=== PATIENT | male | born 1980 | race Caucasian/White ===

== ENCOUNTER → 2016-05-18 | Outpatient (CLI) | payer MEDICAID | LOC: M OUTALCOH 14:10 | PROVIDERS: ATTEND Psychiatry & Neurology Psychiatry | DX: F10.20 Alcohol dependence, uncomplicated (principal); F12.20 Cannabis dependence, uncomplicated ==

== ENCOUNTER → 2016-12-24 | Outpatient (CLI) | payer MEDICAID, OTHER ==
[2016-12-24 10:06] LABS: BASO % 0.4 % (0.0-1.0); EOS # 0.3 K/mm3 (0.0-0.50); EOS % 3.6 % (0.0-3.0); LARGE UNSTAINED CELL # 0.1 K/mm3 (0.0-0.4); LARGE UNSTAINED CELL % 1.9 % (0.0-4.0); LYMPH % 27.7 % (24.0-44.0); MEAN CORPUSCULAR HEMOGLOBIN 32.7 pg (27.0-33.0); MEAN CORPUSCULAR HGB CONC 34.4 g/dl (32.0-36.5); MEAN CORPUSCULAR VOLUME 94.9 fl (80.0-96.0); MONO # 0.4 K/mm3 (0.0-0.8); MONO % 5.5 % (0.0-5.0); NEUTROPHILS # 4.5 K/mm3 (1.8-7.7); NEUTROPHILS % 60.8 % (36.0-66.0); PLATELET COUNT, AUTOMATED 375 k/mm3 (150-450); RED CELL DISTRIBUTION WIDTH 12.5 % (11.5-14.5); WHITE BLOOD COUNT 7.3 K/mm3 (4.0-10.0)
[2016-12-24 10:37] LABS: ALBUMIN 4.1 GM/DL (3.2-5.2); ALBUMIN/GLOBULIN RATIO 1.32 (1.00-1.93); ALKALINE PHOSPHATASE 81 U/L (45-117); ALT/SGPT 36 U/L (12-78); ANION GAP 7 MEQ/L (8-16); AST/SGOT 16 U/L (15-37); BILIRUBIN,TOTAL 0.3 MG/DL (0.2-1.0); BLOOD UREA NITROGEN 14 MG/DL (7-18); CALCIUM LEVEL 9.5 MG/DL (8.5-10.1); CARBON DIOXIDE LEVEL 30 MEQ/L (21-32); CHLORIDE LEVEL 107 MEQ/L (98-107); CREATININE FOR GFR 0.85 MG/DL (0.70-1.30); GLOMERULAR FILTRATION RATE > 60.0 (>60); GLUCOSE, FASTING 86 MG/DL (70-105); POTASSIUM SERUM 4.5 MEQ/L (3.5-5.1); SODIUM LEVEL 144 MEQ/L (136-145); TOTAL PROTEIN 7.2 GM/DL (6.4-8.2)
== END ==
LOC: M LAB 09:25
PROVIDERS: ATTEND Nurse Practitioner Adult Health
DX: Z79.899 Other long term (current) drug therapy (principal); F33.41 Major depressive disorder, recurrent, in partial remission; F11.21 Opioid dependence, in remission

== ENCOUNTER → 2017-03-23 | Outpatient (CLI) | payer OTHER ==
[2017-03-23 13:31] LABS: ALBUMIN 4.2 GM/DL (3.2-5.2); ALBUMIN/GLOBULIN RATIO 1.31 (1.00-1.93); ALKALINE PHOSPHATASE 87 U/L (45-117); ALT/SGPT 23 U/L (12-78); AST/SGOT 17 U/L (7-37); BILIRUBIN,DIRECT < 0.1 MG/DL (0.0-0.2); BILIRUBIN,TOTAL 0.3 MG/DL (0.2-1.0); TOTAL PROTEIN 7.4 GM/DL (6.4-8.2)
== END ==
LOC: M LAB 12:44
PROVIDERS: ATTEND Nurse Practitioner Family
DX: F10.20 Alcohol dependence, uncomplicated (principal)

== ENCOUNTER → 2018-02-18 | Outpatient (REF) | payer OTHER ==
[2018-02-18 13:09] LABS: ALBUMIN 4.3 GM/DL (3.2-5.2); ALBUMIN/GLOBULIN RATIO 1.54 (1.00-1.93); ALKALINE PHOSPHATASE 69 U/L (45-117); ALT/SGPT 64 U/L (12-78); AST/SGOT 22 U/L (7-37); BILIRUBIN,DIRECT 0.1 MG/DL (0.0-0.2); BILIRUBIN,TOTAL 0.7 MG/DL (0.2-1.0); TOTAL PROTEIN 7.1 GM/DL (6.4-8.2)
== END ==
LOC: M LAB REF 11:46
DX: Z51.81 Encounter for therapeutic drug level monitoring (principal)

== ENCOUNTER 2018-08-07 10:36 | Emergency (ER) | payer MEDICAID, OTHER, SELFPAY ==
[~2018-08-07] VITALS: Ht 167.6 cm; Wt 63.6 kg
[2018-08-07] MEDS ORDERED: KETOROLAC 30 MG/ML VIAL (J1885) IV ONE (12:00)
[2018-08-07] MEDS ORDERED: NS 1,000 ML IV ONE (12:00)
[2018-08-07 12:24] LABS: BASO # 0.1 10^3/uL (0.0-0.2); BASO % 0.4 % (0.0-1.0); EOS # 0.4 10^3/uL (0.0-0.50); EOS % 2.8 % (0.0-3.0); HEMATOCRIT 47.4 % (42.0-52.0); HEMOGLOBIN 16.5 g/dl (13.5-17.5); LYMPH # 3.3 10^3/uL (1.5-4.5); LYMPH % 21.4 % (24.0-44.0); MEAN CORPUSCULAR HEMOGLOBIN 32.6 pg (27.0-33.0); MEAN CORPUSCULAR HGB CONC 34.8 g/dl (32.0-36.5); MEAN CORPUSCULAR VOLUME 93.7 fl (80.0-96.0); MONO # 1.4 10^3/uL (0.0-0.8); MONO % 9.1 % (0.0-5.0); NEUTROPHILS % 65.7 % (36.0-66.0); PLATELET COUNT, AUTOMATED 326 10^3/uL (150-450); RED BLOOD COUNT 5.06 10^6/uL (4.30-6.10); WHITE BLOOD COUNT 15.2 10^3/uL (4.0-10.0)
[2018-08-07 12:41] LABS: BLOOD UREA NITROGEN 14 MG/DL (7-18); CALCIUM LEVEL 8.8 MG/DL (8.5-10.1); CARBON DIOXIDE LEVEL 26 MEQ/L (21-32); CHLORIDE LEVEL 108 MEQ/L (98-107); CREATININE FOR GFR 1.06 MG/DL (0.70-1.30); GLOMERULAR FILTRATION RATE > 60.0 (>60); GLUCOSE, FASTING 94 MG/DL (70-100); POTASSIUM SERUM 4.1 MEQ/L (3.5-5.1); SODIUM LEVEL 138 MEQ/L (136-145)
[2018-08-07] MEDS ORDERED: FLOM0.4C39 PO (13:58)
[2018-08-07] MEDS ORDERED: KETO10TAB PO (13:59)
--- NOTE | 2018-08-07 14:13 | REP ---
CT ABDOMEN AND PELVIS WITHOUT CONTRAST: HISTORY: Left flank pain. A calcification is present in the left kidney consistent with nephrolithiasis. There is no hydroureter. The liver, gallbladder, pancreas, spleen, adrenal glands and right kidney are normal in appearance. There is no mass, adenopathy or free fluid. The visualized lungs are clear. The prostate gland and urinary bladder are normal in appearance. Middle and degenerative change is present in the spine. IMPRESSION: Left nephrolithiasis. Electronically Signed by Jose Armando Silva MD 08/07/2018 02:20 P
[2018-08-07 14:45] VITALS: BP 113/60
[2018-08-07 16:35] LABS: CHLAMYDIA DNA AMPLIFICATION NEGATIVE (NEGATIVE); GC DNA AMPLIFICATION POSITIVE (NEGATIVE)
== END 2018-08-07 15:22 | disposition home or self-care (01) ==
LOC: M ED 10:36
DX: N30.91 Cystitis, unspecified with hematuria (principal); N20.0 Calculus of kidney; Z88.0 Allergy status to penicillin; F17.210 Nicotine dependence, cigarettes, uncomplicated
CPT/HCPCS: 74176; 80048; 81001; 85025; 87086; 87661; 96374; 99284; J1885

== ENCOUNTER 2018-08-08 17:58 | Emergency (ER) | payer MEDICAID ==
[~2018-08-08] VITALS: Ht 167.6 cm; Wt 65.9 kg
[~2018-08-08 17:58] MED LIST: FLOM0.4C39 PO; KETO10TAB PO
[2018-08-08] MEDS ORDERED: cefTRIAXone SOD 250 MG VIAL (J0696) IM ONE (18:45)
[2018-08-08] MEDS ORDERED: LIDOCAINE 1% SDV 5 ML VIAL DILUENT ONE (18:45)
[2018-08-08] MEDS ORDERED: AZITHROMYCIN 250 MG TAB PO ONE (18:45)
[2018-08-08 19:45] VITALS: BP 111/77
== END 2018-08-08 19:53 | disposition home or self-care (01) ==
LOC: M ED 17:58
DX: A54.9 Gonococcal infection, unspecified (principal); N20.0 Calculus of kidney; F17.210 Nicotine dependence, cigarettes, uncomplicated; F12.90 Cannabis use, unspecified, uncomplicated; Z88.0 Allergy status to penicillin
CPT/HCPCS: 96372; 99283; J0696

== ENCOUNTER 2018-09-05 18:12 | Emergency (ER) | payer MEDICAID ==
[~2018-09-05] VITALS: Ht 167.6 cm; Wt 64.6 kg
[2018-09-05] MEDS ORDERED: MORPHINE 4 MG/ML 1ML VIAL/SYRINGE (J2270) IV PRN (19:00)
[2018-09-05] MEDS ORDERED: ONDANSETRON 4MG/2ML VIAL (J2405) IV ONE (19:00)
[2018-09-05] MEDS ORDERED: NS 500 ML IV ONE (19:00)
--- NOTE | 2018-09-05 19:23 | REP ---
Clinical: Trauma . Comparison: 03/25/2006 Findings: The mediastinum and cardiac silhouette are stable and within normal limits for portable technique. The lung pascual are clear without acute consolidation, effusion, or pneumothorax. Skeletal structures are intact. Impression: No acute cardiopulmonary process appreciated. Electronically Signed by Pato Frost MD 09/05/2018 07:15 P
[2018-09-05 19:41] LABS: BASO # 0.1 10^3/uL (0.0-0.2); BASO % 0.6 % (0.0-1.0); EOS # 0.2 10^3/uL (0.0-0.50); EOS % 2.3 % (0.0-3.0); HEMATOCRIT 41.6 % (42.0-52.0); HEMOGLOBIN 14.2 g/dl (13.5-17.5); LYMPH # 2.7 10^3/uL (1.5-4.5); LYMPH % 30.1 % (24.0-44.0); MEAN CORPUSCULAR HEMOGLOBIN 31.9 pg (27.0-33.0); MEAN CORPUSCULAR HGB CONC 34.1 g/dl (32.0-36.5); MEAN CORPUSCULAR VOLUME 93.5 fl (80.0-96.0); MONO # 0.8 10^3/uL (0.0-0.8); MONO % 8.6 % (0.0-5.0); NEUTROPHILS # 5.2 10^3/uL (1.8-7.7); NEUTROPHILS % 58.1 % (36.0-66.0); PLATELET COUNT, AUTOMATED 324 10^3/uL (150-450); RED BLOOD COUNT 4.45 10^6/uL (4.30-6.10); WHITE BLOOD COUNT 8.9 10^3/uL (4.0-10.0)
[2018-09-05 19:51] LABS: INR 0.97
[2018-09-05 19:52] LABS: PARTIAL THROMBOPLASTIN TIME 29.8 SECONDS (25.4-37.6)
[2018-09-05 20:04] LABS: ALBUMIN 3.8 GM/DL (3.2-5.2); ALT/SGPT 19 U/L (12-78); BILIRUBIN,DIRECT < 0.1 MG/DL (0.0-0.2); BILIRUBIN,TOTAL 0.6 MG/DL (0.2-1.0); BLOOD UREA NITROGEN 12 MG/DL (7-18); CALCIUM LEVEL 8.8 MG/DL (8.5-10.1); CARBON DIOXIDE LEVEL 31 MEQ/L (21-32); CHLORIDE LEVEL 105 MEQ/L (98-107); CREATININE FOR GFR 0.99 MG/DL (0.70-1.30); GLOMERULAR FILTRATION RATE > 60.0 (>60); GLUCOSE, FASTING 93 MG/DL (70-100); LIPASE 137 U/L (73-393); SODIUM LEVEL 142 MEQ/L (136-145); TOTAL PROTEIN 7.2 GM/DL (6.4-8.2)
[2018-09-05] MEDS ORDERED: ISOVUE-370 76% 100ML VIAL (Q9967) As Ordered ONE (20:06)
[2018-09-05] MEDS ORDERED: LIDOCAINE 2% 5ML JELLY UROJET TOP ONE (20:30)
--- NOTE | 2018-09-05 20:34 | REP ---
Clinical: Trauma with acute pain. Technique: Axial contrast enhanced images from the thoracic inlet to the upper abdomen with coronal and sagittal re-formations using 100 ml Isovue 370 intravenous contrast material. Findings: The bilateral lung pascual are well-aerated. Very minimal small patchy left lower lobe opacities may represent trace atelectasis or small contusions. No further significant consolidation. No effusion. No pneumothorax. Tracheobronchial tree is patent. The mediastinum demonstrates normal thoracic aorta, pulmonary vasculature and heart/pericardium. No evidence for mediastinal trauma/injury. No adenopathy. Osseous structures are intact without evidence for acute injury. Impression: 1. Very minimal spotty/patchy opacities in the left lower lobe may reflect trace atelectasis or very small contusions and should be correlated clinically. Short-term, 3-month follow-up may also be considered to exclude more significant pathology. 2. Remainder of the examination appears normal and without further acute pathology or trauma/injury. Electronically Signed by Pato Frost MD 09/05/2018 08:26 P
--- NOTE | 2018-09-05 20:39 | REP ---
Clinical: Trauma with acute pain. Technique: Axial contrast enhanced images from the lung bases to the pubic symphysis with coronal and sagittal re-formations using 100 ml Isovue 370 intravenous contrast material. Comparison: 08/07/2018 Findings: There is no evidence for solid organ injury. Liver, spleen, pancreas, gallbladder, bilateral adrenal glands and kidneys are normal. The enteric system is without obstruction or acute inflammatory process. Normal terminal ileum and appendix are identified in the right lower quadrant. Scattered colonic and sigmoid diverticula noted without acute diverticulitis. Pelvis demonstrates normal bladder and age appropriate prostate/seminal vesicles. No ascites. No free air. No adenopathy. Abdominal aorta and vasculature appear normal and without evidence for injury. Musculoskeletal structures are intact and without evidence for acute trauma. Impression: 1. No evidence for acute injury. 2. No acute abdominopelvic pathology appreciated. 3. Few scattered colonic diverticula without acute diverticulitis. Electronically Signed by Pato Frost MD 09/05/2018 08:31 P
[2018-09-05] MEDS ORDERED: NORC1TAB7 PO (21:13)
[2018-09-05] MEDS ORDERED: CYCL5TAB PO (21:14)
[2018-09-05] MEDS ORDERED: CYCLOBENZAPRINE 10 MG TAB PO ONE (21:15)
[2018-09-05] MEDS ORDERED: PERCOCET 5MG/325MG TAB PO ONE (21:15)
[2018-09-05 21:31] VITALS: BP 108/57
== END 2018-09-05 21:36 | disposition home or self-care (01) ==
LOC: M ED 18:12
DX: S29.012A Strain of muscle and tendon of back wall of thorax, initial encounter (principal); W01.0XXA Fall on same level from slipping, tripping and stumbling without subsequent striking against object, initial encounter; Y92.89 Other specified places as the place of occurrence of the external cause; Z88.0 Allergy status to penicillin; F17.210 Nicotine dependence, cigarettes, uncomplicated
CPT/HCPCS: 36415; 71045; 71260; 74177; 80048; 80076; 81001; 83690; 85025; 85610; 85730; 86850; 86900; 86901; 93041; 94760; 96374; 96375; 99284; J2270; J2405; Q9967

== ENCOUNTER → 2019-02-02 | Outpatient (CLI) | payer MEDICAID, OTHER ==
[~2019-02-02] MED LIST changes: +CYCL5TAB PO; +NAPR-885 PO; +NORC1TAB7 PO
--- NOTE | 2019-02-02 16:25 | REP ---
Five views lumbar spine: Indication: Lumbar spine trauma. Comparison: 09/05/2018. Findings: There is no acute fracture, subluxation or dislocation. There is minimal retrolisthesis of L5 on S1. Disc space height is maintained throughout. No acute paraspinal soft tissue abnormalities are detected. Impression: No acute osseous injury of the lumbar spine. Electronically Signed by Huan Caputo DO 02/02/2019 04:16 P
== END ==
LOC: M RAD 15:28
PROVIDERS: ATTEND Physician Assistant Medical
DX: M54.5 Low back pain (principal)

== ENCOUNTER 2019-02-06 05:41 | Emergency (ER) | payer OTHER ==
[~2019-02-06] VITALS: Ht 167.6 cm; Wt 68.2 kg
[~2019-02-06 05:41] MED LIST changes: -NAPR-885 PO
[2019-02-06 05:42] VITALS: BP 142/81
[2019-02-06] MEDS ORDERED: NAPR-885 PO (05:47)
[2019-02-06] MEDS ORDERED: KETOROLAC 30 MG/ML VIAL (J1885) IV ONE (06:15)
[2019-02-06] MEDS ORDERED: NS 1,000 ML IV ONE ×2 (06:15→07:15)
--- NOTE | 2019-02-06 06:42 | REPVR ---
PROCEDURE INFORMATION: Exam: US Scrotum Exam date and time: 02/06/2019 6:22 AM Clinical history: 38 years old, male; Scrotum pain; Additional Info: testicular pain TECHNIQUE: Imaging protocol: Real-time ultrasound of the scrotum and contents with color Doppler and image documentation. COMPARISON: No relevant prior studies available. FINDINGS: Right testicle: Right testicle measures 4.3 x 2.3 x 2.8 cm. No masses. Normal vascular flow. Left testicle: Left testicle measures 4.1 x 2.2 x 3.0 cm. No masses. Normal vascular flow. Epididymides: Incidental small cysts in the left epididymis measuring up to 3.6 mm. Epididymides are otherwise unremarkable. Normal vascular flow on color Doppler. Scrotum: Normal. No hydrocele the IMPRESSION: 1. No evidence of testicular torsion or orchitis. 2. No acute findings. Electronically signed by: Roxanna Salinas On 02/06/2019 06:41:48 AM
[2019-02-06 06:47] LABS: BASO # 0.1 10^3/uL (0.0-0.2); BASO % 0.8 % (0.0-1.0); EOS # 0.4 10^3/uL (0.0-0.5); EOS % 4.3 % (0.0-3.0); HEMATOCRIT 44.1 % (42.0-52.0); LYMPH # 4.1 10^3/uL (1.5-5.0); LYMPH % 47.6 % (24.0-44.0); MEAN CORPUSCULAR HEMOGLOBIN 32.6 pg (27.0-33.0); MEAN CORPUSCULAR VOLUME 95.9 fl (80.0-96.0); MONO # 0.7 10^3/uL (0.0-0.8); MONO % 7.7 % (0.0-5.0); NEUTROPHILS # 3.4 10^3/uL (1.5-8.5); NEUTROPHILS % 38.9 % (36.0-66.0); PLATELET COUNT, AUTOMATED 295 10^3/uL (150-450); WHITE BLOOD COUNT 8.6 10^3/uL (4.0-10.0)
[2019-02-06 07:00] LABS: BLOOD UREA NITROGEN 9 MG/DL (7-18); CREATININE FOR GFR 0.82 MG/DL (0.70-1.30); GLUCOSE, FASTING 91 MG/DL (70-100)
[2019-02-06 07:01] LABS: CALCIUM LEVEL 8.2 MG/DL (8.5-10.1); CARBON DIOXIDE LEVEL 26 MEQ/L (21-32); CHLORIDE LEVEL 114 MEQ/L (98-107); GLOMERULAR FILTRATION RATE > 60.0 (>60); SODIUM LEVEL 146 MEQ/L (136-145)
[2019-02-06 07:32] LABS: APPEARANCE, URINE CLEAR (CLEAR); BACTERIA, URINE AUTO NEGATIVE (NEGATIVE); BILIRUBIN, URINE AUTO NEGATIVE (NEGATIVE); BLOOD, URINE BLOOD NEGATIVE (NEGATIVE); COLOR, URINE YELLOW (YELLOW); GLUCOSE, URINE (UA) AUTO NEGATIVE (NEGATIVE); KETONE, URINE AUTO NEGATIVE (NEGATIVE); LEUKOCYTE ESTERASE, URINE AUTO NEGATIVE (NEGATIVE); MUCUS, URINE SMALL (NEGATIVE); NITRITE, URINE AUTO NEGATIVE (NEGATIVE); PROTEIN, URINE AUTO NEGATIVE (NEGATIVE); RBC, URINE AUTO 3 /HPF (0-3); SPECIFIC GRAVITY URINE AUTO 1.019 (1.002-1.035); SQUAMOUS EPITHELIAL CELL UR AU 0 /HPF (0-6); UROBILINOGEN, URINE AUTO 0.2 mg/dL (0.0-2.0); WBC, URINE AUTO 2 /HPF (0-3)
--- NOTE | 2019-02-06 07:42 | REPVR ---
PROCEDURE INFORMATION: Exam: CT Abdomen And Pelvis Without Contrast Exam date and time: 02/06/2019 6:39 AM Clinical history: 38 years old, male; Pain; Other: flank; Additional Info: R colic TECHNIQUE: Imaging protocol: Computed tomography of the abdomen and pelvis without contrast. Radiation optimization: All CT scans at this facility use at least one of these dose optimization techniques: automated exposure control; mA and/or kV adjustment per patient size (includes targeted exams where dose is matched to clinical indication); or iterative reconstruction. COMPARISON: CT ABD PELVIS W/O CONTRAST 08/07/2018 12:06 PM FINDINGS: Lungs: Cluster of lung nodules in the left lower lobe measuring up to 4 mm. Liver: Normal. No mass. Gallbladder and bile ducts: Normal. No calcified stones. No ductal dilation. Pancreas: Normal. No ductal dilation. Spleen: Normal. No splenomegaly. Adrenals: Normal. No mass. Kidneys and ureters: Normal. No hydronephrosis. No renal stones. Stomach and bowel: Stomach is not dilated. Subtle curvilinear densities in the second part of the duodenum measuring up to 2.1 x 1.6 cm. The second part of the duodenum measures up to 3.2 cm in diameter. The third part of duodenum is compressed by the SMA and aorta. Moderate stool in the colon. Negative for colonic diverticulitis. No abnormal bowel wall thickening. Appendix: Appendix is normal. Intraperitoneal space: Unremarkable. No free air. No significant fluid collection. Vasculature: Mild calcified atherosclerotic disease. No aortic aneurysm. Lymph nodes: Unremarkable. No enlarged lymph nodes. Bladder: Unremarkable as visualized. Reproductive: Prostate is normal in size. Bones/joints: Unremarkable. No acute fracture. Soft tissues: Unremarkable. IMPRESSION: 1. No renal stones or hydronephrosis. 2. Subtle curvilinear densities in the second part of the duodenum. Probably ingested food or foreign body. No evidence of gastric obstruction. 3. The second part of the duodenum is dilated with compression of the third part of the duodenum by the SMA and aorta. 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 Correlate clinically. 4. Cluster of lung nodules in the left lower lobe. No change from prior. 5. Mild calcified atherosclerotic disease. 6. Additional findings as described Electronically signed by: Roxanna Salinas On 02/06/2019 07:41:46 AM
[2019-02-06 09:11] LABS: CHLAMYDIA DNA AMPLIFICATION NEGATIVE (NEGATIVE); GC DNA AMPLIFICATION NEGATIVE (NEGATIVE)
--- NOTE | 2019-02-07 10:55 | ED PDOC ---
Post-Departure Follow-Up dr walters faxed formal report of ct abd/p for fu Jax Thomas MD Feb 07, 2019 10:55
== END 2019-02-06 08:39 | disposition home or self-care (01) ==
LOC: M ED 05:41
DX: N50.811 Right testicular pain (principal); R93.5 Abnormal findings on diagnostic imaging of other abdominal regions, including retroperitoneum; F17.200 Nicotine dependence, unspecified, uncomplicated; Z86.19 Personal history of other infectious and parasitic diseases; Z88.0 Allergy status to penicillin; Z79.1 Long term (current) use of non-steroidal anti-inflammatories (NSAID)
CPT/HCPCS: 74176; 76870; 80048; 81001; 85025; 87086; 87491; 87591; 93976; 96374; 99284; J1885

== ENCOUNTER → 2019-06-20 | Outpatient (REF) | payer OTHER ==
[~2019-06-20] MED LIST changes: +NAPR-885 PO
[2019-06-20 15:57] LABS: FOLATE 7.9 NG/ML; VITAMIN B12 LEVEL 517 PG/ML
[2019-06-20 16:32] LABS: HEMOGLOBIN A1c 5.3 %
[2019-06-20 18:58] LABS: ALBUMIN 4.2 GM/DL (3.2-5.2); ALT/SGPT 25 U/L (12-78); BILIRUBIN,TOTAL 0.3 MG/DL (0.2-1.0); BLOOD UREA NITROGEN 14 MG/DL (7-18); CALCIUM LEVEL 9.3 MG/DL (8.5-10.1); CARBON DIOXIDE LEVEL 29 MEQ/L (21-32); CHLORIDE LEVEL 106 MEQ/L (98-107); CHOLESTEROL LEVEL 201 MG/DL (<200); CHOLESTEROL RISK RATIO 5.583 (<5); CREATININE FOR GFR 1.15 MG/DL (0.70-1.30); FREE T4 1.11 NG/DL (0.76-1.46); GLOMERULAR FILTRATION RATE > 60.0 (>60); GLUCOSE, FASTING 91 MG/DL (70-100); HDL CHOLESTEROL 36 MG/DL (>40); LDL CHOLESTEROL 118 MG/DL (<100); NON-HDL-C 165 MG/DL; POTASSIUM SERUM 5.1 MEQ/L (3.5-5.1); SODIUM LEVEL 140 MEQ/L (136-145); TOTAL PROTEIN 7.5 GM/DL (6.4-8.2); TRIGLYCERIDES LEVEL 235 MG/DL (<150)
== END ==
LOC: M SFHCPLAZ 12:33
PROVIDERS: ATTEND Nurse Practitioner Family
DX: F10.11 Alcohol abuse, in remission (principal); Z13.1 Encounter for screening for diabetes mellitus; Z13.220 Encounter for screening for lipoid disorders

== ENCOUNTER 2019-12-09 20:18 | Emergency (ER) | payer OTHER ==
[~2019-12-09] VITALS: Ht 167.6 cm; Wt 63.6 kg
[2019-12-09 20:41] LABS: HEMATOCRIT 45.8 % (42.0-52.0); HEMOGLOBIN 15.8 g/dl (13.5-17.5); MEAN CORPUSCULAR HEMOGLOBIN 32.8 pg (27.0-33.0); MEAN CORPUSCULAR HGB CONC 34.5 g/dl (32.0-36.5); MEAN CORPUSCULAR VOLUME 95.2 fl (80.0-96.0); PLATELET COUNT, AUTOMATED 354 10^3/uL (150-450); RED BLOOD COUNT 4.81 10^6/uL (4.30-6.10); WHITE BLOOD COUNT 9.1 10^3/uL (4.0-10.0)
[2019-12-09 20:49] VITALS: BP 128/68
[2019-12-09 20:54] LABS: APPEARANCE, URINE CLEAR (CLEAR); BACTERIA, URINE AUTO NEGATIVE (NEGATIVE); BILIRUBIN, URINE AUTO NEGATIVE (NEGATIVE); BLOOD, URINE BLOOD NEGATIVE (NEGATIVE); COLOR, URINE STRAW (YELLOW); GLUCOSE, URINE (UA) AUTO NEGATIVE (NEGATIVE); KETONE, URINE AUTO NEGATIVE (NEGATIVE); LEUKOCYTE ESTERASE, URINE AUTO NEGATIVE (NEGATIVE); MUCUS, URINE SMALL (NEGATIVE); NITRITE, URINE AUTO NEGATIVE (NEGATIVE); PROTEIN, URINE AUTO NEGATIVE (NEGATIVE); RBC, URINE AUTO 0 /HPF (0-3); SQUAMOUS EPITHELIAL CELL UR AU 0 /HPF (0-6); UROBILINOGEN, URINE AUTO 0.2 mg/dL (0.0-2.0); WBC, URINE AUTO 1 /HPF (0-3)
[2019-12-09 21:22] LABS: ACETAMINOPHEN LEVEL < 2.0 UG/ML (10.0-30.0); ALBUMIN 4.2 GM/DL (3.2-5.2); ALT/SGPT 22 U/L (12-78); AMPHETAMINES LEVEL URINE POSITIVE (NEGATIVE); BARBITURATES URINE NEGATIVE (NEGATIVE); BENZODIAZEPINES URINE NEGATIVE (NEGATIVE); BILIRUBIN,DIRECT < 0.1 MG/DL (0.0-0.2); BILIRUBIN,TOTAL 0.3 MG/DL (0.2-1.0); BLOOD UREA NITROGEN 9 MG/DL (7-18); CANNABINOIDS URINE NEGATIVE (NEGATIVE); CARBON DIOXIDE LEVEL 24 MEQ/L (21-32); CHLORIDE LEVEL 110 MEQ/L (98-107); COCAINE METABOLITE URINE NEGATIVE (NEGATIVE); CREATININE FOR GFR 0.91 MG/DL (0.70-1.30); ETHYL ALCOHOL (ETHANOL) 0.099 % (0.000-0.010); GLOMERULAR FILTRATION RATE > 60.0 (>60); GLUCOSE, FASTING 89 MG/DL (70-100); METHADONE URINE NEGATIVE (NEGATIVE); OPIATES URINE NEGATIVE (NEGATIVE); PHENCYCLIDINE URINE NEGATIVE (NEGATIVE); POTASSIUM SERUM 4.5 MEQ/L (3.5-5.1); SODIUM LEVEL 141 MEQ/L (136-145); TOTAL PROTEIN 7.8 GM/DL (6.4-8.2)
== END 2019-12-09 22:14 | disposition home or self-care (01) ==
LOC: M ED 20:18
DX: F43.20 Adjustment disorder, unspecified (principal); R45.851 Suicidal ideations; F17.200 Nicotine dependence, unspecified, uncomplicated; F12.10 Cannabis abuse, uncomplicated; F10.10 Alcohol abuse, uncomplicated; Z88.0 Allergy status to penicillin
CPT/HCPCS: 36415; 80048; 80076; 80307; 81001; 84443; 85027; 99284; G0480

== ENCOUNTER 2020-05-11 13:24 | Emergency (ER) | payer OTHER ==
[~2020-05-11] VITALS: Ht 167.6 cm; Wt 59.1 kg
--- OUTSIDE RECORDS SUMMARY | 2020-05-11 13:27 | CCD | Continuity of Care Document ---
Author Author Nurse 2, Karlos Weir Organization Unknown Address [address] [place] [address] Phone Unavailable Problems Active Problems Provider Date Opioid abuse Medical Onset: 10/27/2017 Note: Heroin snorted Social History Type Date Description Comments Sex Unknown Allergies, Adverse Reactions, Alerts Active Allergies Reaction Severity Comments Date Seafood Difficulty breathing, Facial swelling, Hives 11/04/2017 Penicillin V Difficulty breathing, Facial swelling, Hives 05/03/2020 Inactive Allergies NKDA 01/01/2016 NKDA 05/03/2020 Medications Description No Active Medications Immunizations Description No Information Available Vital Signs Date Vital Result Comment 05/03/2020 8:57am BP Systolic 140 mmHg BP Diastolic 80 mmHg Heart Rate 99 /min Respiratory Rate 18 /min Body Temperature 97.7 F Weight 128.00 lb 10/20/2018 8:30am BP Systolic 104 mmHg BP Diastolic 66 mmHg Heart Rate 70 /min Respiratory Rate 18 /min Body Temperature 97.5 F Weight 138.00 lb Results Description No Information Available Procedures Description No Information Available Medical Devices Description No Information Available Encounters Description No Information Available Assessments Description No Information Available Plan of Treatment No Information Available Functional Status Description No Information Available Mental Status Description No Information Available Referrals Description No Information Available
--- OUTSIDE RECORDS SUMMARY | 2020-05-11 13:27 | CCD | Continuity of Care Document ---
Author Author Nurse 2, Karlos Weir Organization Unknown Address [address] [place] [address] Phone Unavailable Problems Active Problems Provider Date [...]
--- OUTSIDE RECORDS SUMMARY | 2020-05-11 13:27 | CCD ---
Continuity of Care Document (CCD) Created on: 05/08/2020 Karlos Blanco External Reference #: [id number] : [id number] Sex: Male Author Author Karlos GARCIA M.D. Organization Unknown Address [address] [place] [address] Phone [phone] Problems Active Problems Provider Date Opioid abuse [...]
--- OUTSIDE RECORDS SUMMARY | 2020-05-11 13:28 | CCD ---
Author Author [facility] Address Unknown Phone Unavailable Care Team Providers Care Manager Games Name Role Phone Conrad Mota MD Unavailable Unavailable Conrad Mota MD Unavailable Unavailable Conrad Mota MD Unavailable Unavailable Conrad Mota MD Unavailable Unavailable Conrad Mota MD Unavailable Unavailable Conrad Mota MD Unavailable Unavailable Conrad Mota MD Unavailable Unavailable Conrad Mota MD Unavailable Unavailable Conrad Mota MD Unavailable Unavailable Conrad Mota MD Unavailable Unavailable Conrad Mota MD Unavailable Unavailable Conrad Mota MD Unavailable Unavailable Conrad Mota MD Unavailable Unavailable Conrad Mota MD Unavailable Unavailable Conrad Mota MD Unavailable Unavailable Conrad Mota MD Unavailable Unavailable Conrad Mota MD Unavailable Unavailable Conrad Mota MD Unavailable Unavailable Conrad Mota MD Unavailable Unavailable Conrad Mota MD Unavailable Unavailable Conrad Mota MD Unavailable Unavailable Conrad Mota MD Unavailable Unavailable Conrad Mota MD Unavailable Unavailable Conrad Mota MD Unavailable Unavailable Conrad Mota MD Unavailable Unavailable Conrad Mota MD Unavailable Unavailable Conrad Mota MD Unavailable Unavailable Conrad Mota MD Unavailable Unavailable Conrad Mota MD Unavailable Unavailable Conrad Mota MD Unavailable Unavailable Conrad Mota MD Unavailable Unavailable Conrad Mota MD Unavailable Unavailable Conrad Mota MD Unavailable Unavailable Conrad Mota MD Unavailable Unavailable Conrad Mota MD Unavailable Unavailable Mota, Conrad Parks MD Unavailable Unavailable Mota, Conrad Parks MD Unavailable Unavailable Mota, Conrad Parks MD Unavailable Unavailable Mota, Conrad Parks MD Unavailable Unavailable Mota, Conrad Parks MD Unavailable Unavailable Mota, Conrad Parks MD Unavailable Unavailable Mota, Conrad Parks MD Unavailable Unavailable Mota, Conrad Parks MD Unavailable Unavailable Mota, Conrad Parks MD Unavailable Unavailable Mota, Conrad Parks MD Unavailable Unavailable Mota, Conrad Parks MD Unavailable Unavailable Mota, Conrad Parks MD Unavailable Unavailable Mota, Conrad Parks MD Unavailable Unavailable Mota, Conrad Parks MD Unavailable Unavailable Mota, Conrad Parks MD Unavailable Unavailable Mota, Conrad Parks MD Unavailable Unavailable Mota, Conrad Parks MD Unavailable Unavailable Mota, Conrad Parks MD Unavailable Unavailable Mota, Conrad Parks MD Unavailable Unavailable Mota, Conrad Parks MD Unavailable Unavailable Mota, Conrad Parks MD Unavailable Unavailable Mota, Conrad Parks MD Unavailable Unavailable Mota, Conrad Parks MD Unavailable Unavailable Mota, Conrad Parks MD Unavailable Unavailable Mota, Conrad Parks MD Unavailable Unavailable Mota, Conrad Parks MD Unavailable Unavailable Mota, Conrad Parks MD Unavailable Unavailable Mota, Conrad Parks MD Unavailable Unavailable Mota, Conrad Parks MD Unavailable Unavailable Mota, Conrad Parks MD Unavailable Unavailable Mota, Conrad Parks MD Unavailable Unavailable Mota, Conrad Parks MD Unavailable Unavailable Mota, Conrad Parks MD Unavailable Unavailable Mota, Conrad Parks MD Unavailable Unavailable Mota, Conrad Parks MD Unavailable Unavailable Mota, Conrad Parks MD Unavailable Unavailable Mota, Conrad Parks MD Unavailable Unavailable Mota, Conrad Parks MD Unavailable Unavailable Mota, Conrad Parks MD Unavailable Unavailable Mota, Conrad Parks MD Unavailable Unavailable Mota, Conrad Parks MD Unavailable Unavailable Mota, Conrad Parks MD Unavailable Unavailable Mota, Conrad Parks MD Unavailable Unavailable Mtoa, Conrad Parks MD Unavailable Unavailable Mota, Conrad Parks MD Unavailable Unavailable Mota, Conrad Parks MD Unavailable Unavailable Mota, Conrad Parks MD Unavailable Unavailable Mota, Conrad Parks MD Unavailable Unavailable Mota, Conrad Parks MD Unavailable Unavailable Mota, Conrad Parks MD Unavailable Unavailable Mota, Conrad Parks MD Unavailable Unavailable Mota, Conrad Parks MD Unavailable Unavailable Mota, Conrad Parks MD Unavailable Unavailable Mota, oCnrad Parks MD Unavailable Unavailable Re-disclosure Warning The records that you are about to access may contain information from federally-assisted alcohol or drug abuse programs. If such information is present, then the following federally mandated warning applies: This information has been disclosed to you from records protected by federal confidentiality rules (42 CFR part 2). The federal rules prohibit you from making any further disclosure of this information unless further disclosure is expressly permitted by the written consent of the person to whom it pertains or as otherwise permitted by 42 CFR part 2. A general authorization for the release of medical or other information is NOT sufficient for this purpose. The Federal rules restrict any use of the information to criminally investigate or prosecute any alcohol or drug abuse patient.The records that you are about to access may contain highly sensitive health information, the redisclosure of which is protected by Article 27-F of the [facility] Public Health law. If you continue you may have access to information: Regarding HIV / AIDS; Provided by facilities licensed or operated by the [facility] Office of Mental Health; or Provided by the [facility] Office for People With Developmental Disabilities. If such information is present, then the following [facility] mandated warning applies: This information has been disclosed to you from confidential records which are protected by state law. State law prohibits you from making any further disclosure of this information without the specific written consent of the person to whom it pertains, or as otherwise permitted by law. Any unauthorized further disclosure in violation of state law may result in a fine or senior care sentence or both. A general authorization for the release of medical or other information is NOT sufficient authorization for further disc losure. Allergies and Adverse Reactions Type Description Substance Reaction Status Data Source(s ) Penicillin (For Allergies Use Only) Penicillin (For Allergie s Use Only) Penicillin (For Allergies Use Only) Anaphylaxis Active eCW1 ([facility]) Drug allergy NKDA NKDA MEDENT ([facility]) Drug allergy Drug allergy NKDA MEDENT [facility] Encounters Encounter Providers Location Date Indications Data Source(s ) Outpatient Attender: Charly NICHOLAS 09/19/2019 07:51:[address] [facility] [address] [facility] [place] [address] 07/03/2019 12:00:00 AM EDT eCW1 ([facility]) [facility] [address] [facility] [place] [address] 06/19/2019 12:00:00 AM EDT eCW1 ([facility]) Insurance Providers Payer name Policy type / Coverage type Policy ID Covered green party ID Covered green party's relationship to sapp Policy Sapp Plan Information RAMIN [id number] SP [id number] Medicaid P [id number] S [id number] MEDICAID [id number] SP [id number] [facility] DEPT [id number] SP [id number] SELF PAY ONLY [id number] SP [id number] [employer] [facility] [id number] SP [id number] [employer] [facility] [id number] SP [id number] SELF PAY ONLY UNAVAILABLE UNAV AILABLE SELF PAY UNAVAILABLE UNAVAILA BLE MEDICAID [id number] SP [id number] [employer]AN [id number] SP [id number] Problems, Conditions, and Diagnoses Code Display Name Description Problem Type Effective Dates Data Source(s) F17.210 [id number] Cigarette nicotine dependence without com plication Problem 06/19/2019 12:00:00 AM EDT eCW1 ([facility]) F10.11 [id number] History of ETOH abuse Problem 06/19/2019 12: 00:00 AM EDT eCW1 ([facility]) Surgeries/Procedures Procedure Description Date Indications Data Source(s) BEHAV CHNG SMOKING 3-10 MIN 06/19/2019 12:00:00 AM EDT eCW1 ([facility]) Results ID Date Data Source VITB12 & FOL 06/20/2019 12:00:00 AM EDT eCW1 ([facility]) Name Value Range Interpretation Code Description Data Carmela rce(s) Supporting Document(s) 7.9 FOLATE eCW1 ([facility]) 517 VITAMIN B12 LEVEL eCW1 ([facility]) ID Date Data Source VITAMIN D 25-HYDROXY 06/20/2019 12:00:00 AM EDT eCW1 ([facility]) Name Value Range Interpretation Code Description Data Carmela rce(s) Supporting Document(s) 18.0 30.0-100.0 TOTAL 25(OH) VITAMIN D eC W1 ([facility]) ID Date Data Source LIPID PANEL (CARDIAC RISK) 06/20/2019 12:00:00 AM EDT eCW1 ( [facility]) Name Value Range Interpretation Code Description Data Carmela rce(s) Supporting Document(s) Cholesterol in LDL [Mass/volume] in Serum or Plasma by calculation 118 <100 LDL CHOLESTEROL eCW1 ([facility]) Cholesterol in HDL [Moles/volume] in Serum or Plasma 36 >40 HDL CHOLESTEROL eCW1 ([facility]) Triglyceride [Mass/volume] in Serum or Plasma by calculation 235 <150 TRIGLYCERIDES LEVEL eCW1 ([facility]) Cholesterol [Moles/volume] in Serum or Plasma 201 <200 CHOLESTEROL LEVEL eCW1 ([facility]) 5.583 <5 CHOLESTEROL RISK RATIO eCW1 ([facility]) 165 NON-HDL-C eCW1 ([facility]) ID Date Data Source [id number] 06/20/2019 12:00:00 AM EDT eCW1 ([facility]) Name Value Range Interpretation Code Description Data Carmela rce(s) Supporting Document(s) Hemoglobin A1c/Hemoglobin.total in Blood 5.3 HEMOGLOBIN A1c eCW1 ([facility]) ID Date Data Source FREE T4 & TSH PANEL 06/20/2019 12:00:00 AM EDT eCW1 ([facility]) Name Value Range Interpretation Code Description Data Carmela rce(s) Supporting Document(s) 1.11 0.76-1.46 FREE T4 eCW1 ([facility]) 1.770 0.358-3.740 THYROID STIMULATING HORM ONE eCW1 ([facility]) ID Date Data Source Comprehensive Metabolic Profile (CMP) 06/20/2019 12:00:00 AM EDT eCW1 ([facility]) Name Value Range Interpretation Code Description Data Carmela rce(s) Supporting Document(s) 91 70-100 GLUCOSE, FASTING eCW1 ([facility]) 1.15 0.70-1.30 CREATININE FOR GFR eCW1 ([facility]) 14 7-18 BLOOD UREA NITROGEN eCW1 ([facility]) 140 136-145 SODIUM LEVEL eCW1 ([facility]) 106 98-107 CHLORIDE LEVEL eCW1 ([facility]) 5.1 3.5-5.1 POTASSIUM SERUM eCW1 ([facility]) > 60.0 >60 GLOMERULAR FILTRATION RATE eCW 1 ([facility]) 19 7-37 AST/SGOT eCW1 ([facility]) 25 12-78 ALT/SGPT eCW1 ([facility]) 90 45-117 ALKALINE PHOSPHATASE eCW1 ([facility]) 29 21-32 CARBON DIOXIDE LEVEL eCW1 ([facility]) 9.3 8.5-10.1 CALCIUM LEVEL eCW1 ([facility]) 4.2 3.2-5.2 ALBUMIN eCW1 ([facility]) 0.3 0.2-1.0 BILIRUBIN,TOTAL eCW1 ([facility]) 1.27 1.00-1.93 ALBUMIN/GLOBULIN RATIO eCW1 ([facility]) 7.5 6.4-8.2 TOTAL PROTEIN eCW1 ([facility]) Procedure Vital Signs ID Date Data Source UNK Name Value Range Interpretation Code Description Data Source(s) Body weight 128.00 [lb_av] 128.00 [lb_av] MEDEN T ([facility]) Body temperature 97.7 [degF] 97.7 [degF] MEDENT ([facility]) Respiratory rate 18 /min 18 /min MEDENT ( [facility]) Heart rate 99 /min 99 /min MEDENT ([facility]) Diastolic blood pressure 80 mm[Hg] 80 mm[Hg] MEDENT ([facility]) Systolic blood pressure 140 mm[Hg] 140 mm[Hg] M EDENT ([facility]) Diastolic blood pressure 58 mm[Hg] 58 mm[Hg] eCW1 ([facility]) Systolic blood pressure 90 mm[Hg] 90 mm[Hg] e CW1 ([facility]) Body temperature 98.4 [degF] 98.4 [degF] eCW1 ( [facility]) Respiratory rate 18 /min 18 /min eCW1 ([facility]) Heart rate 74 /min 74 /min eCW1 ([facility]) Body mass index (BMI) [Ratio] 23.24 kg/m2 23.24 kg/m2 eCW1 ([facility]) Body height 66 [in_us] 66 [in_us] eCW1 ([facility]) Body weight Measured 144.0 [lb_av] 144.0 [lb_av ] eCW1 ([facility])
[2020-05-11] MEDS ORDERED: NS 1,000 ML IV ONE (13:45)
[2020-05-11] MEDS ORDERED: FAMOTIDINE INJ 20MG/2ML VIAL (S0028 PER 1) IVP ONE (13:45)
[2020-05-11] MEDS ORDERED: methylPREDNISolone 125MG 2ML VIAL IV ONE (13:45)
--- OUTSIDE RECORDS SUMMARY | 2020-05-11 14:21 | CCD ---
Author Author [facility] Organization [facility] Address Unknown Phone Unavailable Care Team Providers Care Top Frame Maker Name Role Phone Conrad Mota MD Unavailable Unavailable Conrad Mota MD Unavailable Unavailable Conrad Mota MD Unavailable Unavailable Conrad Mota MD Unavailable Unavailable Conard Mota MD Unavailable Unavailable Conrad Mota MD [...] Unavailable Mota, Conrad Parks MD Unavailable Unavailable Re-disclosure Warning The [...] is protected by Article 27-F of the [facility] Public Health law. If you continue you may have access to information: Regarding HIV / AIDS; Provided by facilities licensed or operated by the [facility] Office of Mental Health; or Provided by the [facility] Office for People With Developmental Disabilities. If such information is present, then the following [facility] mandated warning applies: This information has been [...] law may result in a fine or half-way sentence or both. A general authorization for the release of medical or other information is NOT sufficient authorization for further disc losure. Allergies and Adverse Reactions Type Description Substance Reaction Status Data Source(s ) Penicillin (For Allergies Use Only) Penicillin (For Allergie s Use Only) Penicillin (For Allergies Use Only) Anaphylaxis Active eCW1 ([facility]) Drug allergy NKDA NKDA MEDENT ([facility]) Drug allergy Drug allergy NKDA MEDENT [facility]) Encounters Encounter Providers Location Date Indications Data Source(s ) Outpatient Attender: Charly NICHOLAS 09/19/2019 07:51:14 PM EDT [facility] [address] [facility] [place] [address] 07/03/2019 12:00:00 AM EDT eCW1 ([facility]) [facility] [address] [facility] [place] [address] 06/19/2019 12:00:00 AM EDT eCW1 ([facility]) Insurance Providers Payer name Policy type / Coverage type Policy ID Covered alliance party ID Covered alliance party's relationship to sapp Policy Sapp Plan Information [facility] DEPT [id number] [facility] [id number] 000 Medicaid P [id number] S [id number] MED[place]ID [id number] SP [id number] [place] [employer]ENTICE DEPT [id number] SP [id number] SELF PAY ONLY [id number] SP [id number] [facility] [id number] SP [id number] [facility] [id number] SP [id number] SELF PAY ONLY UNAVAILABLE UNAV AILABLE SELF PAY UNAVAILABLE UNAVAILA BLE MEDICAID [id number] SP [id number] [facility] PLAN [id number] SP [id number] Problems, Conditions, and Diagnoses Code Display Name Description Problem Type Effective Dates Data Source(s) F17.210 [id number] Cigarette nicotine dependence without com plication Problem 06/19/2019 12:00:00 AM EDT eCW1 ([facility]) F10.11 [id number] History of ETOH abuse Problem 06/19/2019 12: 00:00 AM EDT eCW1 ([facility]) Surgeries/Procedures Procedure Description Date Indications Data Source(s) BEHAV CHNG SMOKING 3-10 MIN 06/19/2019 12:00:00 AM EDT eCW1 ([facility]) Results ID Date Data Source VITB12 & FOL 06/20/2019 12:00:00 AM EDT eCW1 ([facility]) Name Value Range Interpretation Code Description Data Carmela rce(s) Supporting Document(s) 7.9 FOLATE eCW1 ([facility]) 517 VITAMIN B12 LEVEL eCW1 ([facility]) ID Date Data Source VITAMIN D 25-HYDROXY 06/20/2019 12:00:00 AM EDT eCW1 ([facility]) Name Value Range Interpretation Code Description Data Carmela rce(s) Supporting Document(s) 18.0 30.0-100.0 TOTAL 25(OH) VITAMIN D eC W1 ([facility]) ID Date Data Source LIPID PANEL (CARDIAC RISK) 06/20/2019 12:00:00 AM EDT eCW1 ( [facility]) Name Value Range Interpretation Code Description Data Carmela rce(s) Supporting Document(s) Cholesterol in LDL [Mass/volume] in Serum or Plasma by calculation 118 <100 LDL CHOLESTEROL eCW1 ([facility]) Cholesterol in HDL [Moles/volume] in Serum or Plasma 36 >40 HDL CHOLESTEROL eCW1 ([facility]) Triglyceride [Mass/volume] in Serum or Plasma by calculation 235 <150 TRIGLYCERIDES LEVEL eCW1 ([facility]) Cholesterol [Moles/volume] in Serum or Plasma 201 <200 CHOLESTEROL LEVEL eCW1 ([facility]) 5.583 <5 CHOLESTEROL RISK RATIO eCW1 ([facility]) 165 NON-HDL-C eCW1 ([facility]) ID Date Data Source [id number] 06/20/2019 12:00:00 AM EDT eCW1 ([facility]) Name Value Range Interpretation Code Description Data Carmela rce(s) Supporting Document(s) Hemoglobin A1c/Hemoglobin.total in Blood 5.3 HEMOGLOBIN A1c eCW1 ([facility]) ID Date Data Source FREE T4 & TSH PANEL 06/20/2019 12:00:00 AM EDT eCW1 ([facility]) Name Value Range Interpretation Code Description Data Carmela rce(s) Supporting Document(s) 1.11 0.76-1.46 FREE T4 eCW1 ([facility]) 1.770 0.358-3.740 THYROID STIMULATING HORM ONE eCW1 ([facility]) ID Date Data Source Comprehensive Metabolic Profile (CMP) 06/20/2019 12:00:00 AM EDT eCW1 ([facility]) Name Value Range Interpretation Code Description Data Carmela rce(s) Supporting Document(s) 91 70-100 GLUCOSE, FASTING eCW1 ([facility]) 1.15 0.70-1.30 CREATININE FOR GFR eCW1 ([facility]) 14 7-18 BLOOD UREA NITROGEN eCW1 ([facility]) 140 136-145 SODIUM LEVEL eCW1 (Pending sale to [facility]) 106 98-107 CHLORIDE LEVEL eCW1 ([facility]) 5.1 3.5-5.1 POTASSIUM SERUM eCW1 ([facility]) > 60.0 >60 GLOMERULAR FILTRATION RATE eCW 1 ([facility]) 19 7-37 AST/SGOT eCW1 ([facility]) 25 12-78 ALT/SGPT eCW1 ([facility]) 90 45-117 ALKALINE PHOSPHATASE eCW1 ([facility]) 29 21-32 CARBON DIOXIDE LEVEL eCW1 ([facility]) 9.3 8.5-10.1 CALCIUM LEVEL eCW1 ([facility]) 4.2 3.2-5.2 ALBUMIN eCW1 ([facility]) 0.3 0.2-1.0 BILIRUBIN,TOTAL eCW1 ([facility]) 1.27 1.00-1.93 ALBUMIN/GLOBULIN RATIO eCW1 ([facility]) 7.5 6.4-8.2 TOTAL PROTEIN eCW1 ([facility]) Procedure Vital Signs ID Date Data Source UNK Name Value Range Interpretation Code Description Data Source(s) Body weight 128.00 [lb_av] 128.00 [lb_av] MEDEN T ([facility]) Body temperature 97.7 [degF] 97.7 [degF] MEDENT ([facility]) Respiratory rate 18 /min 18 /min MEDENT ( [facility]) Heart rate 99 /min 99 /min MEDENT ([facility]) Diastolic blood pressure 80 mm[Hg] 80 mm[Hg] MEDENT ([facility]) Systolic blood pressure 140 mm[Hg] 140 mm[Hg] M EDENT ([facility]) Diastolic blood pressure 58 mm[Hg] 58 mm[Hg] eCW1 ([facility]) Systolic blood pressure 90 mm[Hg] 90 mm[Hg] e CW1 ([facility]) Body temperature 98.4 [degF] 98.4 [degF] eCW1 ( [facility]) Respiratory rate 18 /min 18 /min eCW1 ([facility]) Heart rate 74 /min 74 /min eCW1 ([facility]) Body mass index (BMI) [Ratio] 23.24 kg/m2 23.24 kg/m2 eCW1 ([facility]) Body height 66 [in_us] 66 [in_us] eCW1 ([facility]) Body weight Measured 144.0 [lb_av] 144.0 [lb_av ] W1 ([facility])
[2020-05-11] MEDS ORDERED: PRED20TA PO ×2 (15:40→16:05)
[2020-05-11] MEDS ORDERED: PEPC1TAB5 PO ×2 (15:40→16:05)
[2020-05-11] MEDS ORDERED: BENA25CA4 PO ×2 (15:41→16:05)
[2020-05-11 15:50] VITALS: BP 134/74
== END 2020-05-11 16:12 | disposition home or self-care (01) ==
LOC: M ED 13:24
DX: T50.905A Adverse effect of unspecified drugs, medicaments and biological substances, initial encounter (principal); Z87.442 Personal history of urinary calculi; Z79.899 Other long term (current) drug therapy; Z88.0 Allergy status to penicillin; Z91.013 Allergy to seafood
CPT/HCPCS: 93041; 94760; 96361; 96374; 96375; 99285; J2930

== ENCOUNTER 2021-02-21 01:48 | Inpatient (IN) | payer OTHER ==
[~2021-02-21 01:48] MED LIST changes: +BENA25CA4 PO; +PEPC1TAB5 PO; +PRED20TA PO
[2021-02-21] MEDS ORDERED: NALOXONE 2MG/2ML SYRINGE (J2310 PER 1MG) As Ordered ONE (01:50)
--- OUTSIDE RECORDS SUMMARY | 2021-02-21 01:52 | CCD ---
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, Moderate: Amphetamine-type sub stance Active 12/12/2020 F10.20 Alcohol Use Disorder, Moderate Active Medications Rx Norm Medication Route Route Concept Start Date Stop Date Dosage Ky quency Duration Formula Strength Dosage Form Dosage Form Code Dosage Description Medication Id Account Npid Author First Name Author Last Name Taxonomy Code Taxonomy Desc Phone Number [id number] escitalopram oxalate by mouth [id number] 10/22/2020 04/20/2021 once a day 30 10 mg tablet [id number] Ramy Perez [id number] N urse Practitioner [phone] prazosin by mouth [id number] 10/22/2020 04/20/2021 at bedtime 30 1 mg capsule [id number] Ramy Perez [id number] Nurse Pr actitioner [id number] trazodone by mouth [id number] 10/22/2020 05/21/2021 at bedtime 30 50 mg tablet as needed 51114 [id number] Ramy Perez [id number] Nurse Practitioner [phone] Social History Social History Element Description Concept Effective Date Smoking Status Unknown if ever smoked [id number] Immunizations No Data in Section Vital Signs No Data in Section Procedures Date Concept Id Description Targeted Site Concept Targeted Site Concept Type 12/11/2020 [id number] Extended Individual Psychotherapy - 45 min CPT Patient has no history of implantable de vices Encounters Encounter Start Date End Date Encounter Type Description Diagnosis Di agnosis Desc Location Author First Name Author Last Name Npid Taxonomy Cod e Taxonomy Desc Phone Number Location Addr1 Location Addr2 Location [facility] Location Sta te Location Zip [id number] 12/11/2020 12/11/2020 [id number] Extended Individual Psych otherapy - 45 min F43.12 Post-traumatic stress disorder, chronic [facility] Alf Eb mandeep Martin [phone] [id number] [place] [id number] [address] [place] [address] Plan of Treatment No Data in Section Lab Results No Data in Section Instructions No Data in Section Insurance Providers Insurance Id Policy Effective Date Policy Thru Date Company N mandeep [id number] [facility]
--- OUTSIDE RECORDS SUMMARY | 2021-02-21 01:52 | CCD ---
Author Author [facility] Organization [facility] Address Unknown Phone Unavailable Care Team Providers Care Pecan Gatherer Name Role Phone Ajay Perez LEATHER CARTRIDGE BELT MAKER Unavailable Unavailable Ajay Perez NP Unavailable Unavailable Ajay Perez NP Unavailable Unavailable Diana Monaco Unavailable Veronica Hammond Unavailable Re-disclosure Warning The records that you [...] is protected by Article 27-F of the [facility] Public Health law. If you continue you may have access to information: Regarding HIV / AIDS; Provided by facilities licensed or operated by the [facility] Office of Mental Health; or Provided by the [facility] Office for People With Developmental Disabilities. If such information is present, then the following [facility] mandated warning applies: This information has been [...] law may result in a fine or mcc sentence or both. A general authorization for the release of medical or other information is NOT sufficient authorization for further disc losure. Allergies and Adverse Reactions Type Description Substance Reaction Status Data Source(s ) Propensity to adverse reactions NKDA NKDA MEDENT [facility] Propensity to adverse reactions Propensity to adverse reactions NKDA MEDENT ([facility]) Encounters Encounter Providers Location Date Indications Data Source(s ) Attender: Veronica Hammond 01/03/2021 12:00:00 A M EDT [facility] ([facility]) Extended Individual Psychotherapy - 45 min Attender: Jd Sternzay [facility] 01/01/2021 09:45:00 AM EDT - 01/01/2021 09:45:00 AM EDT [facility] ([facility]) Half-Way - Case Management Attender: Veronica Hammond [facility] 12/30/2020 08:15:00 AM EDT - 12/30/2020 08:15:00 AM EDT [facility] ([facility]) Attender: Veronica Hammond 12/30/2020 12:00:00 A M EDT [facility] ([facility]) Attender: Veronica Hammond 12/12/2020 12:00:00 A M EDT [facility] ([facility]) Extended Individual Psychotherapy - 45 min Attender: Jd Sternzay [facility] 12/11/2020 09:15:00 AM EDT - 12/11/2020 09:15:00 AM EDT [facility] ([facility]) Attender: Diana Monaco 12/02/2020 12:00:00 AM E DT [facility] ([facility]) Extended Individual Psychotherapy - 45 min Attender: Adin Monaco [facility] 11/29/2020 01:00:00 AM EDT - 11/29/2020 01:00:00 AM EDT [facility] ([facility]) Telemed Diagnostic Eval Attender: Ramy Perez NP [facility] 10/22/2020 09:00:00 AM EDT - 10/22/2020 09:00:00 AM EDT [facility] ([facility]) Attender: Ramy Perez NP 10/22/2020 12:00:00 AM EDT [facility] ([facility]) Attender: Veronica Hammond 10/18/2020 12:00:00 A M EDT [facility] ([facility]) Extended Individual Psychotherapy - 45 min Attender: Jd maldonado [facility] 10/16/2020 08:45:00 AM EDT - 10/16/2020 08:45:00 AM EDT [facility] ([facility]) Attender: Veronica Hammond 09/24/2020 12:00:00 A M EDT [facility] ([facility]) Extended Individual Psychotherapy - 45 min Attender: Jd maldonado [facility] 09/23/2020 01:30:00 AM EDT - 09/23/2020 01:30:00 AM EDT [facility] ([facility]) Extended Individual Psychotherapy - 45 min Attender: Adin Monaco [facility] 09/03/2020 08:30:00 AM EDT - 09/03/2020 08:30:00 AM EDT [facility] ([facility]) Attender: Diana Monaco 09/03/2020 12:00:00 AM E DT [facility] ([facility]) Extended Individual Psychotherapy - 45 min Attender: Adin Monaco [facility] 07/26/2020 09:30:00 AM EDT - 07/26/2020 09:30:00 AM EDT [facility] ([facility]) Attender: Diana Monaco 07/26/2020 12:00:00 AM E DT [facility] ([facility]) Half-Way - Case Management Attender: Diana Carlos Enrique [facility] 07/03/2020 10:15:00 AM EDT - 07/03/2020 10:15:00 AM EDT [facility] ([facility]) Attender: Diana Monaco 07/03/2020 12:00:00 AM E DT [facility] ([facility]) Brief Individual Psychotherapy - 30 min [facility] 10:00:00 AM EST - 06/17/2020 10:00:00 AM EST [facility] ([facility]) Attender: Diana Monaco 06/17/2020 12:00:[address] [facility] ([facility]) Extended Individual Psychotherapy - 45 min Attender: Adin Monaco [facility] 05/17/2020 12:15:00 PM EST - 05/17/2020 12:15:00 PM EST [facility] ([facility]) Attender: Diana Monaco 05/17/2020 12:00:[address] [facility] ([facility]) Functional Status Immunizations Vaccine Date Status Description Data Source(s) COVID-19 VACCINE Junito 07/22/2020 12:00:00 AM EDT completed NYSIIS Vaccine Series Complete: YESThis Data wa s Submitted to [facility] Via [employer]. Medications Medication Brand Name Start Date Product Form Dose Route Admi nistrative Instructions Pharmacy Instructions Status Indications Reaction Description Data Source(s) Trazodone Hydrochloride 50 MG Oral Tablet trazodone 2020 12:00:00 AM EDT 50 mg by mouth completed <td ID="Medic ationRxNorm_3">623799</td><td ID="MedicationMedication_3">trazodone</td><td ID="MedicationRoute_3">by mouth</td><td ID="MedicationRouteConcept_3">W91384</td><td ID="MedicationStartDate_3">10/22/2020</td><td ID="MedicationStopDate_3">05/21/2021</td><td ID="MedicationDosageFrequency_3">at bedtime</td><td ID="MedicationDuration_3">30</td><td ID="MedicationFormulaStrength_3">50 mg</td><td ID="MedicationDosageForm_3">tablet</td><td ID="MedicationDosageFormCode_3"></td><td ID="MedicationDosageDescription_3">as needed</td><td ID="MedicationMedicationId_3">[id number]</td><td ID="MedicationAccount_3">[id number]</td><td ID="MedicationNpid_3">[id number]</td><td ID="MedicationAuthorFirstName_3">Ramy</td><td ID="MedicationAuthorLastName_3">Perez</td><td ID="MedicationTaxonomyCode_3">[id number]</td><td ID="MedicationTaxonomyDesc_3">Nurse Practitioner</td><td ID="MedicationPhoneNumber_3">[phone]</td> [facility] ([facility]) Trazodone Hydrochloride 50 MG Oral Tablet trazodone 2020 12:00:00 AM EDT 50 mg by mouth completed <td ID="Medic ationRxNorm_1">675632</td><td ID="MedicationMedication_1">trazodone</td><td ID="MedicationRoute_1">by mouth</td><td ID="MedicationRouteConcept_1">N12765</td><td ID="MedicationStartDate_1">10/22/2020</td><td ID="MedicationStopDate_1">03/01/2021</td><td ID="MedicationDosageFrequency_1">at bedtime</td><td ID="MedicationDuration_1">30</td><td ID="MedicationFormulaStrength_1">50 mg</td><td ID="MedicationDosageForm_1">tablet</td><td ID="MedicationDosageFormCode_1"></td><td ID="MedicationDosageDescription_1">as needed</td><td ID="MedicationMedicationId_1">[id number]</td><td ID="MedicationAccount_1">[id number]</td><td ID="MedicationNpid_1">[id number]</td><td ID="MedicationAuthorFirstName_1">Raym</td><td ID="MedicationAuthorLastName_1">Perez</td><td ID="MedicationTaxonomyCode_1">[id number]</td><td ID="MedicationTaxonomyDesc_1">Nurse Practitioner</td><td ID="MedicationPhoneNumber_1">[phone]</td> [facility] ([facility]) Prazosin 1 MG Oral Capsule prazosin 10/22/2020 12:00:00 AM EDT 1 mg by mouth completed <td ID="Medicat ionRxNorm_2">073342</td><td ID="MedicationMedication_2">prazosin</td><td ID="MedicationRoute_2">by mouth</td><td ID="MedicationRouteConcept_2">M49265</td><td ID="MedicationStartDate_2">10/22/2020</td><td ID="MedicationStopDate_2">04/20/2021</td><td ID="MedicationDosageFrequency_2">at bedtime</td><td ID="MedicationDuration_2">30</td><td ID="MedicationFormulaStrength_2">1 mg</td><td ID="MedicationDosageForm_2">capsule</td><td ID="MedicationDosageFormCode_2"></td><td ID="MedicationDosageDescription_2"></td><td ID="MedicationMedicationId_2">[id number]</td><td ID="MedicationAccount_2">[id number]</td><td ID="MedicationNpid_2">[id number]</td><td ID="MedicationAuthorFirstName_2">Ramy</td><td ID="MedicationAuthorLastName_2">Perez</td><td ID="MedicationTaxonomyCode_2">[id number]</td><td ID="MedicationTaxonomyDesc_2">Nurse Practitioner</td><td ID="MedicationPhoneNumber_2">[phone]</td> [facility] ([facility]) Prazosin 1 MG Oral Capsule prazosin 10/22/2020 12:00:00 AM EDT 1 mg by mouth completed <td ID="Medicat ionRxNorm_4">578284</td><td ID="MedicationMedication_4">prazosin</td><td ID="MedicationRoute_4">by mouth</td><td ID="MedicationRouteConcept_4">Z42230</td><td ID="MedicationStartDate_4">10/22/2020</td><td ID="MedicationStopDate_4">04/20/2021</td><td ID="MedicationDosageFrequency_4">at bedtime</td><td ID="MedicationDuration_4">30</td><td ID="MedicationFormulaStrength_4">1 mg</td><td ID="MedicationDosageForm_4">capsule</td><td ID="MedicationDosageFormCode_4"></td><td ID="MedicationDosageDescription_4"></td><td ID="MedicationMedicationId_4">[id number]</td><td ID="MedicationAccount_4">[id number]</td><td ID="MedicationNpid_4">[id number]</td><td ID="MedicationAuthorFirstName_4">Ramy</td><td ID="MedicationAuthorLastName_4">Perez</td><td ID="MedicationTaxonomyCode_4">[id number]</td><td ID="MedicationTaxonomyDesc_4">Nurse Practitioner</td><td ID="MedicationPhoneNumber_4">[phone]</td> [facility] ([facility]) Prazosin 1 MG Oral Capsule prazosin 10/22/2020 12:00:00 AM EDT 1 mg by mouth completed <td ID="Medicat ionRxNorm_3">911530</td><td ID="MedicationMedication_3">prazosin</td><td ID="MedicationRoute_3">by mouth</td><td ID="MedicationRouteConcept_3">A86581</td><td ID="MedicationStartDate_3">10/22/2020</td><td ID="MedicationStopDate_3">03/01/2021</td><td ID="MedicationDosageFrequency_3">at bedtime</td><td ID="MedicationDuration_3">30</td><td ID="MedicationFormulaStrength_3">1 mg</td><td ID="MedicationDosageForm_3">capsule</td><td ID="MedicationDosageFormCode_3"></td><td ID="MedicationDosageDescription_3"></td><td ID="MedicationMedicationId_3">[id number]</td><td ID="MedicationAccount_3">[id number]</td><td ID="MedicationNpid_3">[id number]</td><td ID="MedicationAuthorFirstName_3">Ramy</td><td ID="MedicationAuthorLastName_3">Perez</td><td ID="MedicationTaxonomyCode_3">[id number]</td><td ID="MedicationTaxonomyDesc_3">Nurse Practitioner</td><td ID="MedicationPhoneNumber_3">[phone]</td> [facility] ([facility]) Escitalopram 10 MG Oral Tablet escitalopram oxalate 10/22/2020 1 2:00:00 AM EDT 10 mg by mouth completed <td ID="Medic ationRxNorm_2">491962</td><td ID="MedicationMedication_2">escitalopram oxalate</td><td ID="MedicationRoute_2">by mouth</td><td ID="MedicationRouteConcept_2">W68569</td><td ID="MedicationStartDate_2">10/22/2020</td><td ID="MedicationStopDate_2">03/01/2021</td><td ID="MedicationDosageFrequency_2">once a day</td><td ID="MedicationDuration_2">30</td><td ID="MedicationFormulaStrength_2">10 mg</td><td ID="MedicationDosageForm_2">tablet</td><td ID="MedicationDosageFormCode_2"></td><td ID="MedicationDosageDescription_2"></td><td ID="MedicationMedicationId_2">16529</td><td ID="MedicationAccount_2">[id number]</td><td ID="MedicationNpid_2">[id number]</td><td ID="MedicationAuthorFirstName_2">Ramy</td><td ID="MedicationAuthorLastName_2">Perez</td><td ID="MedicationTaxonomyCode_2">[id number]</td><td ID="MedicationTaxonomyDesc_2">Nurse Practitioner</td><td ID="MedicationPhoneNumber_2">[phone]</td> [facility]) Escitalopram 10 MG Oral Tablet escitalopram oxalate 10/22/2020 1 2:00:00 AM EDT 10 mg by mouth completed <td ID="Medic ationRxNorm_3">037202</td><td ID="MedicationMedication_3">escitalopram oxalate</td><td ID="MedicationRoute_3">by mouth</td><td ID="MedicationRouteConcept_3">D11388</td><td ID="MedicationStartDate_3">10/22/2020</td><td ID="MedicationStopDate_3">04/20/2021</td><td ID="MedicationDosageFrequency_3">once a day</td><td ID="MedicationDuration_3">30</td><td ID="MedicationFormulaStrength_3">10 mg</td><td ID="MedicationDosageForm_3">tablet</td><td ID="MedicationDosageFormCode_3"></td><td ID="MedicationDosageDescription_3"></td><td ID="MedicationMedicationId_3">[id number]</td><td ID="MedicationAccount_3">[id number]</td><td ID="MedicationNpid_3">[id number]</td><td ID="MedicationAuthorFirstName_3">Ramy</td><td ID="MedicationAuthorLastName_3">Perez</td><td ID="MedicationTaxonomyCode_3">[id number]</td><td ID="MedicationTaxonomyDesc_3">Nurse Practitioner</td><td ID="MedicationPhoneNumber_3">[phone]</td> [facility] ([facility]) Escitalopram 10 MG Oral Tablet escitalopram oxalate 10/22/2020 1 2:00:00 AM EDT 10 mg by mouth completed <td ID="Medic ationRxNorm_1">132327</td><td ID="MedicationMedication_1">escitalopram oxalate</td><td ID="MedicationRoute_1">by mouth</td><td ID="MedicationRouteConcept_1">F47911</td><td ID="MedicationStartDate_1">10/22/2020</td><td ID="MedicationStopDate_1">04/20/2021</td><td ID="MedicationDosageFrequency_1">once a day</td><td ID="MedicationDuration_1">30</td><td ID="MedicationFormulaStrength_1">10 mg</td><td ID="MedicationDosageForm_1">tablet</td><td ID="MedicationDosageFormCode_1"></td><td ID="MedicationDosageDescription_1"></td><td ID="MedicationMedicationId_1">[id number]</td><td ID="MedicationAccount_1">[id number]</td><td ID="MedicationNpid_1">[id number]</td><td ID="MedicationAuthorFirstName_1">Ramy</td><td ID="MedicationAuthorLastName_1">Perez</td><td ID="MedicationTaxonomyCode_1">[id number]</td><td ID="MedicationTaxonomyDesc_1">Nurse Practitioner</td><td ID="MedicationPhoneNumber_1">[phone]</td> [facility] ([facility]) Trazodone Hydrochloride 50 MG Oral Tablet trazodone 2020 12:00:00 AM EDT 50 mg by mouth completed <td ID="Medic ationRxNorm_5">664535</td><td ID="MedicationMedication_5">trazodone</td><td ID="MedicationRoute_5">by mouth</td><td ID="MedicationRouteConcept_5">E97992</td><td ID="MedicationStartDate_5">10/22/2020</td><td ID="MedicationStopDate_5">04/20/2021</td><td ID="MedicationDosageFrequency_5">at bedtime</td><td ID="MedicationDuration_5">30</td><td ID="MedicationFormulaStrength_5">50 mg</td><td ID="MedicationDosageForm_5">tablet</td><td ID="MedicationDosageFormCode_5"></td><td ID="MedicationDosageDescription_5"></td><td ID="MedicationMedicationId_5">[id number]</td><td ID="MedicationAccount_5">[id number]</td><td ID="MedicationNpid_5">[id number]</td><td ID="MedicationAuthorFirstName_5">Ramy</td><td ID="MedicationAuthorLastName_5">Perez</td><td ID="MedicationTaxonomyCode_5">[id number]</td><td ID="MedicationTaxonomyDesc_5">Nurse Practitioner</td><td ID="MedicationPhoneNumber_5">[phone]</td> [facility] ([facility]) Famotidine 20 MG Oral Tablet FAMOTIDINE 05/11/2020 12:00:00 AM EST tab let 10 TAKE ONE TABLET BY MOUTH TWICE A DAY TAKE ONE TABLET BY MOUTH TWICE A DAY SOLD: 05/12/2020 [facility] 25 mg 05/11/2020 12:00:00 AM EST capsule 30 TAKE TWO CAPSULES BY MOUTH EVERY 6 TO 8 HOURS NEEDED FOR ITCHING AND SWELLING TAKE TWO CAPSULES BY MOUTH EVERY 6 TO 8 HOURS NEEDED FOR ITCHING AND SWELLING SOLD: 05/12/2020 [facility] 20 mg 05/11/2020 12:00:00 AM EST tablet 15 TAKE THREE TABLETS BY MOUTH EVERY DAY TAKE THREE TABLETS BY MOUTH EVERY DAY SOLD: 05/12/2020 [facility] olanzapine 10 MG Oral Tablet [Zyprexa] Zyprexa 04/30/2016 12:0 0:00 AM EST 10 mg by mouth completed <td ID="La dicationRxNorm_1">556080</td><td ID="MedicationMedication_1">Zyprexa</td><td ID="MedicationRoute_1">by mouth</td><td ID="MedicationRouteConcept_1">O77819</td><td ID="MedicationStartDate_1">04/30/2016</td><td ID="MedicationStopDate_1">10/22/2020</td><td ID="MedicationDosageFrequency_1">at bedtime</td><td ID="MedicationDuration_1"></td><td ID="MedicationFormulaStrength_1">10 mg</td><td ID="MedicationDosageForm_1">tablet</td><td ID="MedicationDosageFormCode_1"></td><td ID="MedicationDosageDescription_1"></td><td ID="MedicationMedicationId_1">[id number]</td><td ID="MedicationAccount_1">[id number]</td><td ID="MedicationNpid_1">[id number]</td><td ID="MedicationAuthorFirstName_1">Temi</td><td ID="MedicationAuthorLastName_1">Baillargeon</td><td ID="MedicationTaxonomyCode_1">[id number]</td><td ID="MedicationTaxonomyDesc_1">Psychiatric/Mental Health</td><td ID="MedicationPhoneNumber_1">[phone]</td> [facility] ([facility]) Fluoxetine 20 MG Oral Capsule [Prozac] Prozac 04/30/2016 12:0 0:00 AM EST 20 mg completed <td ID="Me dicationRxNorm_2">621327</td><td ID="MedicationMedication_2">Prozac</td><td ID="MedicationRoute_2"></td><td ID="MedicationRouteConcept_2"></td><td ID="MedicationStartDate_2">04/30/2016</td><td ID="MedicationStopDate_2">10/22/2020</td><td ID="MedicationDosageFrequency_2">every morning</td><td ID="MedicationDuration_2"></td><td ID="MedicationFormulaStrength_2">20 mg</td><td ID="MedicationDosageForm_2">capsule</td><td ID="MedicationDosageFormCode_2"></td><td ID="MedicationDosageDescription_2">as directed</td><td ID="MedicationMedicationId_2">[id number]</td><td ID="MedicationAccount_2">[id number]</td><td ID="MedicationNpid_2">[id number]</td><td ID="MedicationAuthorFirstName_2">Temi</td><td ID="MedicationAuthorLastName_2">Baillargeon</td><td ID="MedicationTaxonomyCode_2">[id number]</td><td ID="MedicationTaxonomyDesc_2">Psychiatric/Mental Health</td><td ID="MedicationPhoneNumber_2">[phone]</td> [facility] ([facility]) Insurance Providers Payer name Policy type / Coverage type Policy ID Covered democrat ID Covered democrat's relationship to sapp Policy Sapp Plan Information Medicaid P [id number] S [id number] [facility] [id number] SP [id number] MEDICAID [id number] SP [id number] [facility] DEPT [id number] SP [id number] SELF PAY ONLY [id number] SP [id number] [facility] COMMUNITY PLAN [facility] [id number] SP [id number] [facility] COMMUNITY PLAN [facility] [id number] SP [id number] SELF PAY ONLY UNAVAILABLE UNAV AILABLE SELF PAY UNAVAILABLE UNAVAILA BLE MEDICAID [id number] SP [id number] [facility] DEPT [id number] SP [id number] [facility] PLAN [id number] SP [id number] Problems, Conditions, and Diagnoses Code Display Name Description Problem Type Effective Dates Data Source(s) F10.20 Alcohol dependence, uncomplicated Alcohol Use Di sorder, Moderate Condition 01/03/2021 12:00:00 AM EDT [facility] ([facility]) F15.20 Other stimulant dependence, uncomplicate d Stimulant Use Disorder, Moderate: Amphetamine-type substance Condition 01/03/2021 12:00:00 AM EDT [facility] ([facility]) F41.9 Anxiety disorder, unspecified Unspecified Anxiety Diso rder Condition 01/03/2021 12:00:00 AM EDT [facility] ([facility]) F43.12 Post-traumatic stress disorder, chronic Post-traumatic stress disorder, chronic Condition 01/03/2021 12:00:00 AM EDT [facility] ([facility]) F43.8 Other reactions to severe stress Other S pecified Trauma- and Stressor- Related Disorder Condition 10/18/2020 12:00:00 AM EDT [facility] ([facility]) F31.62 Bipolar disorder, current episode mixed, moderate Bipolar disorder, current episode mixed, moderate Condition 10/18/2020 12:00:00 AM EDT [facility] ([facility]) Surgeries/Procedures Procedure Description Date Indications Data Source(s) Extended Individual Psychotherapy - 45 min 01/03/2021 12:00:00 AM EDT - 01/03/2021 12:00:00 AM EDT [facility] ([facility]) Extended Individual Psychotherapy - 45 min 12:00:00 AM EDT [facility] ([facility]) Half-Way - Case Management 12/30/2020 12:00: 00 AM EDT - 12/30/2020 12:00:00 AM EDT [facility] ([facility]) Half-Way - Case Management 12/30/2020 12:00:00 AM EDT [facility] ([facility]) Extended Individual Psychotherapy - 45 min 12/12/2020 12:00:00 AM EDT - 12/12/2020 12:00:00 AM EDT [facility] ([facility]) Extended Individual Psychotherapy - 45 min 12:00:00 AM EDT [facility] ([facility]) Extended Individual Psychotherapy - 45 min 12/02/2020 12:00:00 AM EDT - 12/02/2020 12:00:00 AM EDT [facility] ([facility]) Extended Individual Psychotherapy - 45 min 12:00:00 AM EDT [facility] ([facility]) Telemed Diagnostic Eval 10/22/2020 12:00 :00 AM EDT - 10/22/2020 12:00:00 AM EDT [facility] ([facility]) Telemed Diagnostic Eval 10/22/2020 12:00:00 AM EDT [facility] ([facility]) Extended Individual Psychotherapy - 45 min 10/18/2020 12:00:00 AM EDT - 10/18/2020 12:00:00 AM EDT [facility] ([facility]) Extended Individual Psychotherapy - 45 min 12:00:00 AM EDT [facility] ([facility]) Extended Individual Psychotherapy - 45 min 09/24/2020 12:00:00 AM EDT - 09/24/2020 12:00:00 AM EDT [facility] ([facility]) Extended Individual Psychotherapy - 45 min 12:00:00 AM EDT [facility] ([facility]) Extended Individual Psychotherapy - 45 min 09/03/2020 12:00:00 AM EDT - 09/03/2020 12:00:00 AM EDT [facility] ([facility]) Extended Individual Psychotherapy - 45 min 12:00:00 AM EDT [facility] ([facility]) Extended Individual Psychotherapy - 45 min 07/26/2020 12:00:00 AM EDT - 07/26/2020 12:00:00 AM EDT [facility] ([facility]) Extended Individual Psychotherapy - 45 min 12:00:00 AM EDT [facility] ([facility]) Half-Way - Case Management 07/03/2020 12:00: 00 AM EDT - 07/03/2020 12:00:00 AM EDT [facility] ([facility]) Half-Way - Case Management 07/03/2020 12:00:00 AM EDT [facility] ([facility]) Brief Individual Psychotherapy - 30 min 06/17/2020 12:00:00 AM EST - 06/17/2020 12:00:00 AM EST [facility] ([facility]) Brief Individual Psychotherapy - 30 min 06/17/2020 12: 00:00 AM EST [facility] ([facility]) Extended Individual Psychotherapy - 45 min 05/17/2020 12:00:00 AM EST - 05/17/2020 12:00:00 AM EST [facility] ([facility]) Extended Individual Psychotherapy - 45 min 12:00:00 AM EST [facility] ([facility]) Results No Information Social History Code Duration Value Status Description Data Source(s ) Smoking 01/03/2021 12:00:00 AM EDT Unknown if ever smoked comp leted Unknown if ever smoked [facility] ([facility]) Smoking 12/30/2020 12:00:00 AM EDT Unknown if ever smoked comp leted Unknown if ever smoked [facility] ([facility]) Smoking 12/12/2020 12:00:00 AM EDT Unknown if ever smoked comp leted Unknown if ever smoked [facility] ([facility]) Smoking 12/02/2020 12:00:00 AM EDT Unknown if ever smoked comp leted Unknown if ever smoked [facility] ([facility]) Smoking 10/22/2020 12:00:00 AM EDT Unknown if ever smoked comp leted Unknown if ever smoked [facility] ([facility]) Smoking 10/18/2020 12:00:00 AM EDT Unknown if ever smoked comp leted Unknown if ever smoked [facility] ([facility]) Smoking 09/24/2020 12:00:00 AM EDT Unknown if ever smoked comp leted Unknown if ever smoked [facility] ([facility]) Smoking 09/03/2020 12:00:00 AM EDT Unknown if ever smoked comp leted Unknown if ever smoked [facility] ([facility]) Smoking 07/26/2020 12:00:00 AM EDT Unknown if ever smoked comp leted Unknown if ever smoked [facility] ([facility]) Smoking 07/03/2020 12:00:00 AM EDT Unknown if ever smoked comp leted Unknown if ever smoked [facility] ([facility]) Smoking 06/17/2020 12:00:00 AM EST Unknown if ever smoked comp leted Unknown if ever smoked [facility] ([facility]) Smoking 05/17/2020 12:00:00 AM EST Unknown if ever smoked comp leted Unknown if ever smoked [facility] ([facility]) Vital Signs ID Date Data Source UNK Name Value Range Interpretation Code Description Data Source(s) Body weight 134.00 [lb_av] 134.00 [lb_av] MED[facility] T ([facility]) Systolic blood pressure 101 mm[Hg] 101 mm[Hg] M [facility] ([facility]) Diastolic blood pressure 59 mm[Hg] 59 mm[Hg] [facility] Heart rate 77 /min 77 /min [facility] ([facility]) Respiratory rate 20 /min 20 /min [facility] ( [facility]) Body temperature 97.4 [degF] 97.4 [degF] [facility] Systolic blood pressure 140 mm[Hg] 140 mm[Hg] M [facility] ([facility]) Diastolic blood pressure 80 mm[Hg] 80 mm[Hg] [facility] ([facility]) Heart rate 99 /min 99 /min [facility] ([facility]) Respiratory rate 18 /min 18 /min [facility] ( [facility]) Body temperature 97.7 [degF] 97.7 [degF] [facility] Body weight 128.00 [lb_av] 128.00 [lb_av] [facility] T ([facility])
--- OUTSIDE RECORDS SUMMARY | 2021-02-21 01:52 | CCD ---
Author Author Karlos Mcmanus Organization Unknown Address [address] [place] [address] [place] [address] Phone Unavailable Care Team Providers Care Systems Integration Manager Name Role Phone Veronica Mcmanus PCP Allergies, Adverse Reactions, Alerts No Data in Section Problem List Concept Problem Description Status Start Date Created Date Resolv ed Date Snomed Code F43.12 Post-traumatic stress disorder, chronic Active 12/30/2020 F41.9 Unspecified Anxiety Disorder Active 12/30/2020 F15.20 Stimulant Use Disorder, Moderate: Amphetamine-type sub stance Active 12/30/2020 F10.20 Alcohol Use Disorder, Moderate Active Medications Rx Norm Medication Route Route Concept Start Date Stop Date Dosage Ky quency Duration Formula Strength Dosage Form Dosage Form Code Dosage Description Medication Id Account Npid Author First Name Author Last Name Taxonomy Code Taxonomy Desc Phone Number [phone] escitalopram oxalate by mouth [id number] 10/22/2020 04/20/2021 once a day 30 10 mg tablet 43820 [id number] Ramy Perez [id number] N urse Practitioner [id number] prazosin by mouth [id number] 10/22/2020 04/20/2021 at bedtime 30 1 mg capsule 85609 [id number] Ramy Perez [id number] Nurse Pr actitioner [id number] trazodone by mouth [id number] 10/22/2020 05/21/2021 at bedtime 30 50 mg tablet as needed 86718 [id number] Ramy Perez [id number] Nurse Practitioner [id number] Social History Social History Element Description Concept Effective Date Smoking Status Unknown if ever smoked [id number] Immunizations No Data in Section Vital Signs No Data in Section Procedures Date Concept Id Description Targeted Site Concept Targeted Site Concept Type 12/30/2020 [facility] C PT Patient has no history of implantable de vices Encounters Encounter Start Date End Date Encounter Type Description Diagnosis Di agnosis Desc Location Author First Name Author Last Name Npid Taxonomy Cod e Taxonomy Desc Phone Number Location Addr1 Location Addr2 Location [facility] Location [facility] Location [facility] [id number] 12/30[facility]2020 [facility] F[facility] .12 Post- traumatic stress disorder, chronic [facility] Marietta Martin 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
--- OUTSIDE RECORDS SUMMARY | 2021-02-21 01:52 | CCD ---
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, Moderate: Amphetamine-type sub stance Active 12/02/2020 F10.20 Alcohol Use Disorder, Moderate Active Medications Rx Norm Medication Route Route Concept Start Date Stop Date Dosage Ky quency Duration Formula Strength Dosage Form Dosage Form Code Dosage Description Medication Id Account Npid Author First Name Author Last Name Taxonomy Code Taxonomy Desc Phone Number [phone] escitalopram oxalate by mouth [id number] 10/22/2020 04/20/2021 once a day 30 10 mg tablet 54734 [id number] Ramy Perez [id number] N urse Practitioner [id number] prazosin by mouth [id number] 10/22/2020 04/20/2021 at bedtime 30 1 mg capsule 56168 513540 [id number] Ramy Perez [id number] Nurse Pr actitioner [phone] 086407 trazodone by mouth [id number] 10/22/2020 05/21/2021 at bedtime 30 50 mg tablet as needed 59267 [id number] Ramy Perez [id number] Nurse Practitioner [id number] Social History Social History Element Description Concept Effective Date Smoking Status Unknown if ever smoked [id number] Immunizations No Data in Section Vital Signs No Data in Section Procedures Date Concept Id Description Targeted Site Concept Targeted Site Concept Type 11/29/2020 85089 Extended Individual Psychotherapy - 45 min CPT Patient has no history of implantable de vices Encounters Encounter Start Date End Date Encounter Type Description Diagnosis Di agnosis Desc Location Author First Name Author Last Name Npid Taxonomy Cod e Taxonomy Desc Phone Number Location Addr1 Location Addr2 Location [facility] Location Sta Location Zip [id number] 11/29/2020 11/29/2020 15958 Extended Individual Psych otherapy - 45 min F43.12 Post-traumatic stress disorder, chronic [facility] [phone] 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
--- OUTSIDE RECORDS SUMMARY | 2021-02-21 01:52 | CCD ---
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, Moderate: Amphetamine-type sub stance Active 01/03/2021 F10.20 Alcohol Use Disorder, Moderate Active Medications Rx Norm Medication Route Route Concept Start Date Stop Date Dosage Ky quency Duration Formula Strength Dosage Form Dosage Form Code Dosage Description Medication Id Account Npid Author First Name Author Last Name Taxonomy Code Taxonomy Desc Phone Number [phone] trazodone by mouth [id number] 10/22/2020 03/01/2021 at bedtime 30 50 mg tablet as needed 68376 [id number] Ramy Perez [id number] Nurse Practitioner [phone] [id number] escitalopram oxalate by mouth [id number] 10/22/2020 03/01/2021 once a day 30 10 mg tablet 38813 428125 [id number] Ramy Perez [id number] N urse Practitioner [id number] 267606 prazosin by mouth [id number] 10/22/2020 03/01/2021 at bedtime 30 1 mg capsule 70782 087922 [id number] Ramy Perez [id number] Nurse Pr actitioner [id number] Social History Social History Element Description Concept Effective Date Smoking Status Unknown if ever smoked [id number] Immunizations No Data in Section Vital Signs No Data in Section Procedures Date Concept Id Description Targeted Site Concept Targeted Site Concept Type 01/01/2021 88713 Extended Individual Psychotherapy - 45 min CPT Patient has no history of implantable de vices Encounters Encounter Start Date End Date Encounter Type Description Diagnosis Di agnosis Desc Location Author First Name Author Last Name Npid Taxonomy Cod e Taxonomy Desc Phone Number Location Addr1 Location Addr2 Location [facility] Location Sta Location Zip [id number] 01/01/2021 01/01/2021 98241 Extended Individual Psych otherapy - 45 min F43.12 Post-traumatic stress disorder, chronic [facility] Eb mandeep Martin [phone] [id number] Architectural Sales Consultant [phone] [address] [place] [address] Plan of Treatment No Data in Section Lab Results No Data in Section Instructions No Data in Section Insurance Providers Insurance Id Policy Effective Date Policy Thru Date Company N mandeep [id number] 2018 [facility]
[2021-02-21] MEDS ORDERED: NALOXONE 2MG/2ML SYRINGE (J2310 PER 1MG) IV STA (01:54)
[2021-02-21 02:05] LABS: HEMATOCRIT 44.4 % (42.0-52.0); HEMOGLOBIN 14.5 g/dl (13.5-17.5); MEAN CORPUSCULAR HEMOGLOBIN 30.3 pg (27.0-33.0); MEAN CORPUSCULAR HGB CONC 32.7 g/dl (32.0-36.5); MEAN CORPUSCULAR VOLUME 92.7 fl (80.0-96.0); PLATELET COUNT, AUTOMATED 376 10^3/uL (150-450); RED BLOOD COUNT 4.79 10^6/uL (4.30-6.10); WHITE BLOOD COUNT 6.4 10^3/uL (4.0-10.0)
[2021-02-21 02:16] LABS: ABG BASE EXCESS -3.2 (-2.0-2.0); ABG HCO3 23.6 MEQ/L (22.0-26.0); ABG O2 SATURATION 78.7 % (95.0-99.0); ABG PARTIAL PRESSURE CO2 48.9 mmHg (35.0-45.0); ABG STANDARD HCO3 21.4 MEQ/L (22.0-26.0); ABG TOTAL CO2 25.1 MEQ/L (22.0-29.0); ABG pH (ARTERIAL) 7.301 UNITS (7.350-7.450)
[2021-02-21 02:17] LABS: ABG PARTIAL PRESSURE O2 45.1 mmHg (75.0-100.0)
[2021-02-21 02:48] LABS: ACETAMINOPHEN LEVEL 17.6 UG/ML (10.0-30.0); ALBUMIN 2.6 GM/DL (3.2-5.2); ALT/SGPT 272 U/L (12-78); BILIRUBIN,DIRECT 0.2 MG/DL (0.0-0.2); BILIRUBIN,TOTAL 0.5 MG/DL (0.2-1.0); BLOOD UREA NITROGEN 11 MG/DL (7-18); CALCIUM LEVEL 7.9 MG/DL (8.5-10.1); CARBON DIOXIDE LEVEL 26 MEQ/L (21-32); CHLORIDE LEVEL 116 MEQ/L (98-107); CK-MB VALUE MASS 1.1 NG/ML (<3.6); CPK CREATINE PHOSPHOKINASE 109 U/L (39-308); CREATININE FOR GFR 1.28 MG/DL (0.70-1.30); ETHYL ALCOHOL (ETHANOL) < 0.003 % (0.000-0.010); GLOMERULAR FILTRATION RATE > 60.0 (>60); GLUCOSE, FASTING 125 MG/DL (70-100); MB/CK RELATIVE INDEX 1.01 (< OR =4); POTASSIUM SERUM 3.1 MEQ/L (3.5-5.1); SALICYLATE LEVEL < 1.7 MG/DL (5.0-30.0); SODIUM LEVEL 149 MEQ/L (136-145); TOTAL PROTEIN 5.4 GM/DL (6.4-8.2); TROPONIN I < 0.02 NG/ML (< 0.10)
[2021-02-21] MEDS ORDERED: ONDANSETRON 4MG/2ML VIAL IV ONE (02:50)
[2021-02-21] MEDS ORDERED: NS 1,000 ML IV ONE (02:50)
[2021-02-21 02:55] LABS: ATYPICAL LYMPH 3 % (0-5); LYMPHOCYTES 10 % (16-44); MONOCYTES 2 % (0-5); NEUTROPHILS 78 % (28-66); PLATELET ESTIMATE NORMAL (NORMAL); TOXIC GRANULATION 1+
[2021-02-21] MEDS ORDERED: POTASSIUM CHLORIDE 10% LIQ 20 MEQ/15 ML UDC PO ONE (02:55)
[2021-02-21 02:56] LABS: TOXIC VACUOLATION 1+
[2021-02-21 03:05] LABS: LIPASE 124 U/L (73-393)
[2021-02-21] MEDS ORDERED: ISOVUE-370 76% 100ML VIAL As Ordered ONE (03:11)
--- NOTE | 2021-02-21 03:11 | REPVR ---
PROCEDURE INFORMATION: Exam: XR Chest Exam date and time: 02/21/2021 2:25 AM Age: 40 years old Clinical indication: Other: Altered mental status TECHNIQUE: Imaging protocol: XR of the chest. Views: 1 view. COMPARISON: None - FINDINGS: LUNGS and PLEURAL SPACE: The lungs are symmetrically expanded. Lung volumes are within normal limits. No evidence of peribronchial thickening. There are slightly coarsened reticular lung markings bilaterally. This could be correlated for mild interstitial pneumonitis, edema or chronic interstitial thickening. There is no consolidation, pneumothorax, or pleural effusion. - MEDIASTINUM: There is no mediastinal shift or widening. - CARDIAC SILHOUETTE: Cardiothoracic ratio is within normal limits. - BONY THORAX: No acute findings are seen. - IMPRESSION: Mildly elevated reticular lung markings. Other findings discussed above. Electronically signed by: Surinder Le On 02/21/2021 03:11:20 AM
--- NOTE | 2021-02-21 03:22 | REPVR ---
PROCEDURE INFORMATION: Exam: CT Head Without Contrast Exam date and time: 02/21/2021 1:53 AM Age: 40 years old Clinical indication: Altered mental status/memory loss; Confusion or disorientation TECHNIQUE: Imaging protocol: Computed tomography of the head without contrast. Radiation optimization: All CT scans at this facility use at least one of these dose optimization techniques: automated exposure control; mA and/or kV adjustment per patient size (includes targeted exams where dose is matched to clinical indication); or iterative reconstruction. COMPARISON: March 15, 2010. FINDINGS: Images through the base of the brain and posterior fossa, including the brainstem are slightly degraded by beam hardening artifacts from the adjacent calvarium. - There is a 3.1 cm ovoid area of hypoattenuation along the inferior right frontal lobe, similar to the prior exam and may be secondary to an area of severe encephalomalacia related to prior trauma or an underlying arachnoid cyst. This would be better characterized by MRI as clinically appropriate. - There is no evidence of acute intracranial hemorrhage, extra axial fluid collection or hematoma. There is no midline shift or herniation. The ventricles are not dilated. No evidence of pneumocephalus. - No CT findings are seen at the current time to suggest changes of acute territorial vascular infarction. Note is made however, that CT changes, may lag clinical findings in acute CVA. If clinically indicated, consideration could be given to MRI with diffusion weighted imaging, due to its greater sensitivity, for early detection of acute ischemic change. - Incidental intracranial calcifications are noted. - No pericranial scalp hematoma is seen. Clinical correlation for any significance of visualized dysconjugate ocular gaze. No acute cranial vault fracture is seen. Slight thickening and irregularity of the nasal bones may be developmental or related to old injury. - Mucosal thickening nearly opacifying the visualized left maxillary sinus. No fluid is seen within the visualized paranasal sinuses or mastoid air cells. The visualized middle ear cavities are not opacified. - IMPRESSION: No evidence of acute territorial major vessel infarct, mass effect, or hemorrhage. - Encephalomalacia versus arachnoid cyst again noted along the inferior aspect of the anterior right frontal lobe. - Other findings discussed above. Electronically signed by: Surinder Le On 02/21/2021 03:22:12 AM
[2021-02-21 03:55] LABS: ABG BASE EXCESS -2.4 (-2.0-2.0); ABG HCO3 23.2 MEQ/L (22.0-26.0); ABG O2 SATURATION 98.2 % (95.0-99.0); ABG PARTIAL PRESSURE CO2 43.1 mmHg (35.0-45.0); ABG PARTIAL PRESSURE O2 127.1 mmHg (75.0-100.0); ABG STANDARD HCO3 22.5 MEQ/L (22.0-26.0); ABG TOTAL CO2 24.5 MEQ/L (22.0-29.0); ABG pH (ARTERIAL) 7.349 UNITS (7.350-7.450)
[2021-02-21] MEDS ORDERED: LevoFLOXacin IV 750 MG in IV 1 EA IV ONE (04:05)
[2021-02-21 04:10] LABS: RSV AMPLIFICATION NEGATIVE (NEGATIVE)
[2021-02-21] MEDS ORDERED: NS 890 ML in IV 1 EA IV ONE (04:15)
--- NOTE | 2021-02-21 05:00 | REPVR ---
PROCEDURE INFORMATION: Exam: CT Abdomen And Pelvis With Contrast Exam date and time: 02/21/2021 2:55 AM Age: 40 years old Clinical indication: Abdominal pain; Generalized; Additional info: Abd pain nausea TECHNIQUE: Imaging protocol: Computed tomography of the abdomen and pelvis with contrast. Radiation optimization: All CT scans at this facility use at least one of these dose optimization techniques: automated exposure control; mA and/or kV adjustment per patient size (includes targeted exams where dose is matched to clinical indication); or iterative reconstruction. Contrast material: ISO; Contrast volume: 100 ml; Contrast route: INTRAVENOUS (IV); COMPARISON: CT ABD PELVIS W/O CONTRAST 02/06/2019 7:14 AM - Study limitations: Diagnostic evaluation is slightly compromised by extrinsic beam hardening artifacts and from positioning of the patient's arms alongside the body wall. FINDINGS: LUNG BASES: Elevated interstitial markings at the lung bases may be secondary to edema or interstitial pneumonitis. Noncalcified 11.4 and 7.9 mm nodules seen within the left lower lobe (image 3, image 7, series 201) of uncertain significance. Clinical correlation with risk factors is advised. For patients at low risk (minimal or absent history of smoking and of other known risk factors), recommend CT Chest at 3-6 months, then consider CT Chest at 18-24 months. For patients at high risk (history of smoking or of other known risk factors), recommend CT Chest at 3-6 months, then CT Chest at 18-24 months. (Reference: [facility]). - VASCULAR: No abdominoaortic aneurysm, dissection or retroperitoneal hematoma. There is calcified and noncalcified aortoiliac atherosclerosis. - PERITONEAL : No free air. Small amount of free fluid noted. - GI: No hiatal hernia. The stomach is distended with ingested material and air-fluid level up to 25 cm in length. Clinical correlation for gastroparesis or gastric outlet obstruction versus vigorous recent ingestion. There appears to be pyloric wall thickening. This could be artifactual but pyloric edema cannot be excluded. Correlation with endoscopy or upper GI to exclude a non perforated ulcer or other pyloric abnormality is advised. - There is slight fluid-filled distention of the proximal duodenum. Nonspecific fluid-filled small bowel loops in the pelvis. Some small bowel loops appear slightly thick-walled with elevated magda intestinal vascularity. This could be secondary to enteritis. No appearance of a complete small-bowel obstruction. For further evaluation of small-bowel loops, consider small-bowel follow-through. - Scattered fecal material and gas slightly distending portions of the colon and rectum could be correlated for constipation. Some portions of the colon appear slightly thick-walled. There is mild mucosal enhancement at the ascending colon with mild surrounding edema. Findings are suspicious for mild colitis of uncertain cause. No evidence of acute diverticulitis. The appendix does not appear to be inflamed. - HEPATOBILIARY, PANCREAS, SPLEEN: Hepatic length is 18.8 cm. Evaluation of the liver is slightly compromised by extrinsic artifacts. No calcified gallstones are seen. The common bile duct is not dilated. No pancreatic inflammation. Spleen not enlarged. 10 mm hypodense splenic lesion. Anteriorly of uncertain significance. This is indeterminate but could represent a cyst. For patients without history of cancer, recommend follow-up MRI in 6-12 months. With history of cancer, recommend evaluation with non-emergent PET vs. MRI vs. biopsy. - ADRENALS, KIDNEYS, BLADDER, RETROPERITONEAL: Adrenals within normal limits. No hydronephrosis. Symmetric renal enhancement. No bladder wall thickening. The urinary bladder appears slightly thick-walled. This could be artifactual secondary to insufficient distention but correlation with any symptoms is advised. The prostate does not appear enlarged. Central prostate calcification noted. Scrotal edema cannot be excluded. - MUSCULOSKELETAL: Mild degenerative changes of the spine and pelvis. - IMPRESSION: Multiple gastrointestinal findings to be correlated clinically with the patient's symptoms are discussed above in detail. - Small amount of free fluid within the peritoneal cavity. This is abnormal in a male patient. - Indeterminate pulmonary nodules. Indeterminate splenic lesion. Nonemergent recommendations discussed above. - Other incidental findings discussed above. Electronically signed by: Surinder Le On 02/21/2021 04:59:28 AM
--- OUTSIDE RECORDS SUMMARY | 2021-02-21 05:13 | CCD ---
Author Author [facility] Organization [facility] Address Unknown Phone Unavailable Care Team Providers Care Broth Setter Name Role Phone Ajay Perez CATTLE SPRAYER Unavailable Unavailable Ajay Perez NP Unavailable Unavailable [...] is protected by Article 27-F of the [facility] Public Health law. If you continue you may have access to information: Regarding HIV / AIDS; Provided by facilities licensed or operated by the [facility] Office of Mental Health; or Provided by the [facility] Office for People With Developmental Disabilities. If such information is present, then the following [facility] mandated warning applies: This information has [...] law may result in a fine or custodial sentence or both. A general authorization for the release of medical or other information is NOT sufficient authorization for further disc losure. Allergies and Adverse Reactions Type Description Substance Reaction Status Data Source(s ) Propensity to adverse reactions NKDA NKDA [facility]) Propensity to adverse reactions Propensity to adverse reactions NKDA MEDENT ([facility]) Encounters Encounter Providers Location Date Indications Data Source(s ) Attender: Veronica Hammond 01/03/2021 12:00:00 A M EDT [facility] ([facility]) Extended Individual Psychotherapy - 45 min Attender: Jd Sternzay [facility] 01/01/2021 09:45:00 AM EDT - 01/01/2021 09:45:00 AM EDT [facility] ([facility]) Senior Care - Case Management Attender: Veronica Hammond [facility] 12/30/2020 08:15:00 AM EDT - 12/30/2020 08:15:00 AM EDT [facility] ([facility]) Attender: Veronica Hammond 12/30/2020 12:00:00 A M EDT [facility] ([facility]) Attender: Veronica Hammond 12/12/2020 12:00:00 A M EDT [facility] ([facility]) Extended Individual Psychotherapy - 45 min Attender: Jd Sternzay [facility] 12/11/2020 09:15:00 AM EDT - 12/11/2020 09:15:00 AM EDT [facility] ([facility]) Attender: Diana Monaco 12/02/2020 12:00:00 AM E DT [facility] ([facility]) Extended Individual Psychotherapy - 45 min Attender: Adin Monaco [facility] 11/29/2020 01:00:00 AM EDT - 11/29/2020 01:00:00 AM EDT [facility] ([facility]) Telemed Diagnostic Eval Attender: Ramy Perez NP [facility] 10/22/2020 09:00:00 AM EDT - 10/22/2020 09:00:00 AM EDT [facility] ([facility]) Attender: Ramy Perez NP 10/22/2020 12:00:00 AM EDT [facility] ([facility]) Attender: Veronica Hammond 10/18/2020 12:00:00 A M EDT [facility] ([facility]) Extended Individual Psychotherapy - 45 min Attender: Jd maldonado [facility] 10/16/2020 08:45:00 AM EDT - 10/16/2020 08:45:00 AM EDT [facility] ([facility]) Attender: Veronica Hammond 09/24/2020 12:00:00 A M EDT [facility] ([facility]) Extended Individual Psychotherapy - 45 min Attender: Jd maldonado [facility] 09/23/2020 01:30:00 AM EDT - 09/23/2020 01:30:00 AM EDT [facility] ([facility]) Extended Individual Psychotherapy - 45 min Attender: Adin Monaco [facility] 09/03/2020 08:30:00 AM EDT - 09/03/2020 08:30:00 AM EDT [facility] ([facility]) Attender: Diana Monaco 09/03/2020 12:00:00 AM E DT [facility] ([facility]) Extended Individual Psychotherapy - 45 min Attender: Adin Monaco [facility] 07/26/2020 09:30:00 AM EDT - 07/26/2020 09:30:00 AM EDT [facility] ([facility]) Attender: Diana Monaco 07/26/2020 12:00:00 AM E DT [facility] ([facility]) Senior Care - Case Management Attender: Diana Carlos Enrique [facility] 07/03/2020 10:15:00 AM EDT - 07/03/2020 10:15:00 AM EDT [facility] ([facility]) Attender: Diana Monaco 07/03/2020 12:00:00 AM E DT [facility] ([facility]) Brief Individual Psychotherapy - 30 min Att[facility]: [facility] 06[facility]17/2020 10:00:00 AM EST - 06/17/2020 10:00:00 AM EST [facility] ([facility]) Attender: Diana Monaco 06/17/2020 12:00:[address] [facility] ([facility]) Extended Individual Psychotherapy - 45 min Attender: Adin Monaco [facility] 05/17/2020 12:15:00 PM EST - 05/17/2020 12:15:00 PM EST [facility] ([facility]) Attender: Diana Monaco 05/17/2020 12:00:[address] [facility] ([facility]) Functional Status Immunizations Vaccine Date Status Description Data Source(s) COVID-19 VACCINE Junito 07/22/2020 12:00:00 AM EDT completed NYSIIS Vaccine Series Complete: YESThis Data wa s Submitted to [facility] [employer]. Medications Medication Brand Name Start Date Product Form Dose Route Admi nistrative Instructions Pharmacy Instructions Status Indications Reaction Description Data Source(s) Trazodone Hydrochloride 50 MG Oral Tablet trazodone 2020 12:00:00 AM EDT 50 mg by mouth completed <td ID="Medic ationRxNorm_3">267244</td><td ID="MedicationMedication_3">trazodone</td><td ID="MedicationRoute_3">by mouth</td><td ID="MedicationRouteConcept_3">M16276</td><td ID="MedicationStartDate_3">10/22/2020</td><td ID="MedicationStopDate_3">05/21/2021</td><td ID="MedicationDosageFrequency_3">at bedtime</td><td ID="MedicationDuration_3">30</td><td ID="MedicationFormulaStrength_3">50 mg</td><td ID="MedicationDosageForm_3">tablet</td><td ID="MedicationDosageFormCode_3"></td><td ID="MedicationDosageDescription_3">as needed</td><td ID="MedicationMedicationId_3">[id number]</td><td ID="MedicationAccount_3">[id number]</td><td ID="MedicationNpid_3">[id number]</td><td ID="MedicationAuthorFirstName_3">Ramy</td><td ID="MedicationAuthorLastName_3">Perez</td><td ID="MedicationTaxonomyCode_3">[id number]</td><td ID="MedicationTaxonomyDesc_3">Nurse Practitioner</td><td ID="MedicationPhoneNumber_3">[phone]</td> [facility] ([facility]) Trazodone Hydrochloride 50 MG Oral Tablet trazodone 2020 12:00:00 AM EDT 50 mg by mouth completed <td ID="Medic ationRxNorm_1">774169</td><td ID="MedicationMedication_1">trazodone</td><td ID="MedicationRoute_1">by mouth</td><td ID="MedicationRouteConcept_1">B15848</td><td ID="MedicationStartDate_1">10/22/2020</td><td ID="MedicationStopDate_1">03/01/2021</td><td ID="MedicationDosageFrequency_1">at bedtime</td><td ID="MedicationDuration_1">30</td><td ID="MedicationFormulaStrength_1">50 mg</td><td ID="MedicationDosageForm_1">tablet</td><td ID="MedicationDosageFormCode_1"></td><td ID="MedicationDosageDescription_1">as needed</td><td ID="MedicationMedicationId_1">[id number]</td><td ID="MedicationAccount_1">[id number]</td><td ID="MedicationNpid_1">[id number]</td><td ID="MedicationAuthorFirstName_1">Ramy</td><td ID="MedicationAuthorLastName_1">Perez</td><td ID="MedicationTaxonomyCode_1">[id number]</td><td ID="MedicationTaxonomyDesc_1">Nurse Practitioner</td><td ID="MedicationPhoneNumber_1">[phone]</td> [facility] Prazosin 1 MG Oral Capsule prazosin 10/22/2020 12:00:00 AM EDT 1 mg by mouth completed <td ID="Medicat ionRxNorm_2">648830</td><td ID="MedicationMedication_2">prazosin</td><td ID="MedicationRoute_2">by mouth</td><td ID="MedicationRouteConcept_2">A61907</td><td ID="MedicationStartDate_2">10/22/2020</td><td ID="MedicationStopDate_2">04/20/2021</td><td ID="MedicationDosageFrequency_2">at bedtime</td><td ID="MedicationDuration_2">30</td><td ID="MedicationFormulaStrength_2">1 mg</td><td ID="MedicationDosageForm_2">capsule</td><td ID="MedicationDosageFormCode_2"></td><td ID="MedicationDosageDescription_2"></td><td ID="MedicationMedicationId_2">[id number]</td><td ID="MedicationAccount_2">[id number]</td><td ID="MedicationNpid_2">[id number]</td><td ID="MedicationAuthorFirstName_2">Ramy</td><td ID="MedicationAuthorLastName_2">Perez</td><td ID="MedicationTaxonomyCode_2">[id number]</td><td ID="MedicationTaxonomyDesc_2">Nurse Practitioner</td><td ID="MedicationPhoneNumber_2">[phone]</td> [facility] ([facility]) Prazosin 1 MG Oral Capsule prazosin 10/22/2020 12:00:00 AM EDT 1 mg by mouth completed <td ID="Medicat ionRxNorm_4">023973</td><td ID="MedicationMedication_4">prazosin</td><td ID="MedicationRoute_4">by mouth</td><td ID="MedicationRouteConcept_4">F68131</td><td ID="MedicationStartDate_4">10/22/2020</td><td ID="MedicationStopDate_4">04/20/2021</td><td ID="MedicationDosageFrequency_4">at bedtime</td><td ID="MedicationDuration_4">30</td><td ID="MedicationFormulaStrength_4">1 mg</td><td ID="MedicationDosageForm_4">capsule</td><td ID="MedicationDosageFormCode_4"></td><td ID="MedicationDosageDescription_4"></td><td ID="MedicationMedicationId_4">[id number]</td><td ID="MedicationAccount_4">[id number]</td><td ID="MedicationNpid_4">[id number]</td><td ID="MedicationAuthorFirstName_4">Ramy</td><td ID="MedicationAuthorLastName_4">Perez</td><td ID="MedicationTaxonomyCode_4">[id number]</td><td ID="MedicationTaxonomyDesc_4">Nurse Practitioner</td><td ID="MedicationPhoneNumber_4">[phone]</td> [facility] ([facility]) Prazosin 1 MG Oral Capsule prazosin 10/22/2020 12:00:00 AM EDT 1 mg by mouth completed <td ID="Medicat ionRxNorm_3">511636</td><td ID="MedicationMedication_3">prazosin</td><td ID="MedicationRoute_3">by mouth</td><td ID="MedicationRouteConcept_3">R29127</td><td ID="MedicationStartDate_3">10/22/2020</td><td ID="MedicationStopDate_3">03/01/2021</td><td ID="MedicationDosageFrequency_3">at bedtime</td><td ID="MedicationDuration_3">30</td><td ID="MedicationFormulaStrength_3">1 mg</td><td ID="MedicationDosageForm_3">capsule</td><td ID="MedicationDosageFormCode_3"></td><td ID="MedicationDosageDescription_3"></td><td ID="MedicationMedicationId_3">[id number]</td><td ID="MedicationAccount_3">[id number]</td><td ID="MedicationNpid_3">[id number]</td><td ID="MedicationAuthorFirstName_3">Ramy</td><td ID="MedicationAuthorLastName_3">Perez</td><td ID="MedicationTaxonomyCode_3">[id number]</td><td ID="MedicationTaxonomyDesc_3">Nurse Practitioner</td><td ID="MedicationPhoneNumber_3">[phone]</td> [facility] ([facility]) Escitalopram 10 MG Oral Tablet escitalopram oxalate 10/22/2020 1 2:00:00 AM EDT 10 mg by mouth completed <td ID="Medic ationRxNorm_2">314266</td><td ID="MedicationMedication_2">escitalopram oxalate</td><td ID="MedicationRoute_2">by mouth</td><td ID="MedicationRouteConcept_2">T05202</td><td ID="MedicationStartDate_2">10/22/2020</td><td ID="MedicationStopDate_2">03/01/2021</td><td ID="MedicationDosageFrequency_2">once a day</td><td ID="MedicationDuration_2">30</td><td ID="MedicationFormulaStrength_2">10 mg</td><td ID="MedicationDosageForm_2">tablet</td><td ID="MedicationDosageFormCode_2"></td><td ID="MedicationDosageDescription_2"></td><td ID="MedicationMedicationId_2">[id number]</td><td ID="MedicationAccount_2">[id number]</td><td ID="MedicationNpid_2">[id number]</td><td ID="MedicationAuthorFirstName_2">Ramy</td><td ID="MedicationAuthorLastName_2">Perez</td><td ID="MedicationTaxonomyCode_2">[id number]</td><td ID="MedicationTaxonomyDesc_2">Nurse Practitioner</td><td ID="MedicationPhoneNumber_2">[phone]</td> [facility] Escitalopram 10 MG Oral Tablet escitalopram oxalate 10/22/2020 1 2:00:00 AM EDT 10 mg by mouth completed <td ID="Medic ationRxNorm_3">239840</td><td ID="MedicationMedication_3">escitalopram oxalate</td><td ID="MedicationRoute_3">by mouth</td><td ID="MedicationRouteConcept_3">H69504</td><td ID="MedicationStartDate_3">10/22/2020</td><td ID="MedicationStopDate_3">04/20/2021</td><td ID="MedicationDosageFrequency_3">once a day</td><td ID="MedicationDuration_3">30</td><td ID="MedicationFormulaStrength_3">10 mg</td><td ID="MedicationDosageForm_3">tablet</td><td ID="MedicationDosageFormCode_3"></td><td ID="MedicationDosageDescription_3"></td><td ID="MedicationMedicationId_3">[id number]</td><td ID="MedicationAccount_3">[id number]</td><td ID="MedicationNpid_3">[id number]</td><td ID="MedicationAuthorFirstName_3">Ramy</td><td ID="MedicationAuthorLastName_3">Perez</td><td ID="MedicationTaxonomyCode_3">[id number]</td><td ID="MedicationTaxonomyDesc_3">Nurse Practitioner</td><td ID="MedicationPhoneNumber_3">[phone]</td> [facility] ([facility]) Escitalopram 10 MG Oral Tablet escitalopram oxalate 10/22/2020 1 2:00:00 AM EDT 10 mg by mouth completed <td ID="Medic ationRxNorm_1">360707</td><td ID="MedicationMedication_1">escitalopram oxalate</td><td ID="MedicationRoute_1">by mouth</td><td ID="MedicationRouteConcept_1">J07886</td><td ID="MedicationStartDate_1">10/22/2020</td><td ID="MedicationStopDate_1">04/20/2021</td><td ID="MedicationDosageFrequency_1">once a day</td><td ID="MedicationDuration_1">30</td><td ID="MedicationFormulaStrength_1">10 mg</td><td ID="MedicationDosageForm_1">tablet</td><td ID="MedicationDosageFormCode_1"></td><td ID="MedicationDosageDescription_1"></td><td ID="MedicationMedicationId_1">[id number]</td><td ID="MedicationAccount_1">[id number]</td><td ID="MedicationNpid_1">[id number]</td><td ID="MedicationAuthorFirstName_1">Ramy</td><td ID="MedicationAuthorLastName_1">Perez</td><td ID="MedicationTaxonomyCode_1">[id number]</td><td ID="MedicationTaxonomyDesc_1">Nurse Practitioner</td><td ID="MedicationPhoneNumber_1">[phone]</td> [facility]) Trazodone Hydrochloride 50 MG Oral Tablet trazodone 2020 12:00:00 AM EDT 50 mg by mouth completed <td ID="Medic ationRxNorm_5">411099</td><td ID="MedicationMedication_5">trazodone</td><td ID="MedicationRoute_5">by mouth</td><td ID="MedicationRouteConcept_5">T78258</td><td ID="MedicationStartDate_5">10/22/2020</td><td ID="MedicationStopDate_5">04/20/2021</td><td ID="MedicationDosageFrequency_5">at bedtime</td><td ID="MedicationDuration_5">30</td><td ID="MedicationFormulaStrength_5">50 mg</td><td ID="MedicationDosageForm_5">tablet</td><td ID="MedicationDosageFormCode_5"></td><td ID="MedicationDosageDescription_5"></td><td ID="MedicationMedicationId_5">[id number]</td><td ID="MedicationAccount_5">[id number]</td><td ID="MedicationNpid_5">[id number]</td><td ID="MedicationAuthorFirstName_5">Ramy</td><td ID="MedicationAuthorLastName_5">Perez</td><td ID="MedicationTaxonomyCode_5">[id number]</td><td ID="MedicationTaxonomyDesc_5">Nurse Practitioner</td><td ID="MedicationPhoneNumber_5">[phone]</td> [facility] ([facility]) Famotidine 20 MG Oral Tablet FAMOTIDINE 05/11/2020 [...] EST 10 mg by mouth completed <td ID="Tx dicationRxNorm_1">153614</td><td ID="MedicationMedication_1">Zyprexa</td><td ID="MedicationRoute_1">by mouth</td><td ID="MedicationRouteConcept_1">W22985</td><td ID="MedicationStartDate_1">04/30/2016</td><td ID="MedicationStopDate_1">10/22/2020</td><td ID="MedicationDosageFrequency_1">at bedtime</td><td ID="MedicationDuration_1"></td><td ID="MedicationFormulaStrength_1">10 mg</td><td ID="MedicationDosageForm_1">tablet</td><td ID="MedicationDosageFormCode_1"></td><td ID="MedicationDosageDescription_1"></td><td ID="MedicationMedicationId_1">[id number]</td><td ID="MedicationAccount_1">[id number]</td><td ID="MedicationNpid_1">[id number]</td><td ID="MedicationAuthorFirstName_1">Temi</td><td ID="MedicationAuthorLastName_1">Baillargeon</td><td ID="MedicationTaxonomyCode_1">[id number]</td><td ID="MedicationTaxonomyDesc_1">Psychiatric/Mental Health</td><td ID="MedicationPhoneNumber_1">[phone]</td> [facility] ([facility]) Fluoxetine 20 MG Oral Capsule [Prozac] Prozac 04/30/2016 12:0 0:00 AM EST 20 mg completed <td ID="Me dicationRxNorm_2">888151</td><td ID="MedicationMedication_2">Prozac</td><td ID="MedicationRoute_2"></td><td ID="MedicationRouteConcept_2"></td><td ID="MedicationStartDate_2">04/30/2016</td><td ID="MedicationStopDate_2">10/22/2020</td><td ID="MedicationDosageFrequency_2">every morning</td><td ID="MedicationDuration_2"></td><td ID="MedicationFormulaStrength_2">20 mg</td><td ID="MedicationDosageForm_2">capsule</td><td ID="MedicationDosageFormCode_2"></td><td ID="MedicationDosageDescription_2">as directed</td><td ID="MedicationMedicationId_2">50095</td><td ID="MedicationAccount_2">[id number]</td><td ID="MedicationNpid_2">[id number]</td><td ID="MedicationAuthorFirstName_2">Temi</td><td ID="MedicationAuthorLastName_2">Baillargeon</td><td ID="MedicationTaxonomyCode_2">[id number]</td><td ID="MedicationTaxonomyDesc_2">Psychiatric/Mental Health</td><td ID="MedicationPhoneNumber_2">[phone]</td> [facility] ([facility]) Insurance Providers Payer name Policy type / Coverage type Policy ID Covered constitution party ID Covered constitution party's relationship to sapp Policy Sapp Plan Information Medicaid P [id number] S [id number] [facility] [id number] SP [id number] MEDICAID [id number] SP [id number] [facility] DEPT [id number] SP [id number] SELF PAY ONLY [id number] SP [id number] [facility]LY [facility] PLAN [facility] [id number] SP [id number] [facility] COMMUN[facility] PLAN [facility] [id number] SP [id number] SELF PAY ONLY UNAVAILABLE UNAV AILABLE SELF PAY UNAVAILABLE UNAVAILA BLE MEDICAID [id number] SP [id number] [id number] DEPT [id number] SP [id number] [facility] PLAN [id number] SP [id number] Problems, Conditions, and Diagnoses Code Display Name Description Problem Type Effective Dates Data Source(s) F10.20 Alcohol dependence, uncomplicated Alcohol Use Di sorder, Moderate Condition 01/03/2021 12:00:00 AM EDT [facility] ([facility]) F15.20 Other stimulant dependence, uncomplicate d Stimulant Use Disorder, Moderate: Amphetamine-type substance Condition 01/03/2021 12:00:00 AM EDT [facility] ([facility]) F41.9 Anxiety disorder, unspecified Unspecified Anxiety Diso rder Condition 01/03/2021 12:00:00 AM EDT [facility] ([facility]) F43.12 Post-traumatic stress disorder, chronic Post-traumatic stress disorder, chronic Condition 01/03/2021 12:00:00 AM EDT [facility] ([facility]) F43.8 Other reactions to severe stress Other S pecified Trauma- and Stressor- Related Disorder Condition 10/18/2020 12:00:00 AM EDT [facility] ([facility]) F31.62 Bipolar disorder, current episode mixed, moderate Bipolar disorder, current episode mixed, moderate Condition 10/18/2020 12:00:00 AM EDT [facility] ([facility]) Surgeries/Procedures Procedure Description Date Indications Data Source(s) Extended Individual Psychotherapy - 45 min 01/03/2021 12:00:00 AM EDT - 01/03/2021 12:00:00 AM EDT [facility] ([facility]) Extended Individual Psychotherapy - 45 min 12:00:00 AM EDT [facility] ([facility]) Senior Care - Case Management 12/30/2020 12:00: 00 AM EDT - 12/30/2020 12:00:00 AM EDT [facility] ([facility]) Senior Care - Case Management 12/30/2020 12:00:00 AM EDT [facility] ([facility]) Extended Individual Psychotherapy - 45 min 12/12/2020 12:00:00 AM EDT - 12/12/2020 12:00:00 AM EDT [facility] ([facility]) Extended Individual Psychotherapy - 45 min 12:00:00 AM EDT [facility] ([facility]) Extended Individual Psychotherapy - 45 min 12/02/2020 12:00:00 AM EDT - 12/02/2020 12:00:00 AM EDT [facility] ([facility]) Extended Individual Psychotherapy - 45 min 12:00:00 AM EDT [facility] ([facility]) Telemed Diagnostic Eval 10/22/2020 12:00 :00 AM EDT - 10/22/2020 12:00:00 AM EDT [facility] ([facility]) Telemed Diagnostic Eval 10/22/2020 12:00:00 AM EDT [facility] ([facility]) Extended Individual Psychotherapy - 45 min 10/18/2020 12:00:00 AM EDT - 10/18/2020 12:00:00 AM EDT [facility] ([facility]) Extended Individual Psychotherapy - 45 min 12:00:00 AM EDT [facility] ([facility]) Extended Individual Psychotherapy - 45 min 09/24/2020 12:00:00 AM EDT - 09/24/2020 12:00:00 AM EDT [facility] ([facility]) Extended Individual Psychotherapy - 45 min 12:00:00 AM EDT [facility] ([facility]) Extended Individual Psychotherapy - 45 min 09/03/2020 12:00:00 AM EDT - 09/03/2020 12:00:00 AM EDT [facility] ([facility]) Extended Individual Psychotherapy - 45 min 12:00:00 AM EDT [facility] ([facility]) Extended Individual Psychotherapy - 45 min 07/26/2020 12:00:00 AM EDT - 07/26/2020 12:00:00 AM EDT [facility] ([facility]) Extended Individual Psychotherapy - 45 min 12:00:00 AM EDT [facility] ([facility]) Senior Care - Case Management 07/03/2020 12:00: 00 AM EDT - 07/03/2020 12:00:00 AM EDT [facility] ([facility]) Senior Care - Case Management 07/03/2020 12:00:00 AM EDT [facility] ([facility]) Brief Individual Psychotherapy - 30 min 06/17/2020 12:00:00 AM EST - 06/17/2020 12:00:00 AM EST [facility] ([facility]) Brief Individual Psychotherapy - 30 min 06/17/2020 12: 00:00 AM EST [facility] ([facility]) Extended Individual Psychotherapy - 45 min 05/17/2020 12:00:00 AM EST - 05/17/2020 12:00:00 AM EST [facility] ([facility]) Extended Individual Psychotherapy - 45 min 12:00:00 AM EST [facility] ([facility]) Results No Information Social History Code Duration Value Status Description Data Source(s ) Smoking 01/03/2021 12:00:00 AM EDT Unknown if ever smoked comp leted Unknown if ever smoked [facility] ([facility]) Smoking 12/30/2020 12:00:00 AM EDT Unknown if ever smoked comp leted Unknown if ever smoked [facility] ([facility]) Smoking 12/12/2020 12:00:00 AM EDT Unknown if ever smoked comp leted Unknown if ever smoked [facility] ([facility]) Smoking 12/02/2020 12:00:00 AM EDT Unknown if ever smoked comp leted Unknown if ever smoked [facility] ([facility]) Smoking 10/22/2020 12:00:00 AM EDT Unknown if ever smoked comp leted Unknown if ever smoked [facility] ([facility]) Smoking 10/18/2020 12:00:00 AM EDT Unknown if ever smoked comp leted Unknown if ever smoked [facility] ([facility]) Smoking 09/24/2020 12:00:00 AM EDT Unknown if ever smoked comp leted Unknown if ever smoked [facility] ([facility]) Smoking 09/03/2020 12:00:00 AM EDT Unknown if ever smoked comp leted Unknown if ever smoked [facility] ([facility]) Smoking 07/26/2020 12:00:00 AM EDT Unknown if ever smoked comp leted Unknown if ever smoked [facility] ([facility]) Smoking 07/03/2020 12:00:00 AM EDT Unknown if ever smoked comp leted Unknown if ever smoked [facility] ([facility]) Smoking 06/17/2020 12:00:00 AM EST Unknown if ever smoked comp leted Unknown if ever smoked [facility] ([facility]) Smoking 05/17/2020 12:00:00 AM EST Unknown if ever smoked comp leted Unknown if ever smoked [facility] ([facility]) Vital Signs ID Date Data Source UNK Name Value Range Interpretation Code Description Data Source(s) Body weight 134.00 [lb_av] 134.00 [lb_av] MED[facility] T ([facility]) Systolic blood pressure 101 mm[Hg] 101 mm[Hg] [facility] ([facility]) Diastolic blood pressure 59 mm[Hg] 59 mm[Hg] [facility] Heart rate 77 /min 77 /min [facility] ([facility]) Respiratory rate 20 /min 20 /min [facility] ( [facility]) Body temperature 97.4 [degF] 97.4 [degF] [facility] Systolic blood pressure 140 mm[Hg] 140 mm[Hg] [facility] ([facility]) Diastolic blood pressure 80 mm[Hg] 80 mm[Hg] [facility] ([facility]) Heart rate 99 /min 99 /min [facility] ([facility]) Respiratory rate 18 /min 18 /min [facility] ( [facility]) Body temperature 97.7 [degF] 97.7 [degF] [facility] Body weight 128.00 [lb_av] 128.00 [lb_av] MED[facility] T ([facility])
[2021-02-21] MEDS: NOREPINEPHRINE BITARTRATE 8 MG in D5W 492 ML IV SCH ×2 (05:45→08:37)
[2021-02-21] MEDS ORDERED: MAALOX 30 ML SUSP *UDC PO PRN (06:10)
[2021-02-21] MEDS ORDERED: MOM 30ML SUSPENSION UDC PO PRN (06:10)
[2021-02-21] MEDS ORDERED: ACETAMINOPHEN TAB 650MG DOSE (2X325MG) PO PRN (06:10)
[2021-02-21] MEDS ORDERED: VANCOMYCIN HCL 1,000 MG, VIAL MATE ADAPTER 1 EACH in NS 250 ML IV SCH (06:10)
[2021-02-21] MEDS ORDERED: NS 0.45% 1,000 ML IV SCH (06:20)
--- NOTE | 2021-02-21 06:25 | HPEPDOC ---
[facility] Medical History & Physical Date of Admission Feb 21, 2021 Date of Service: Feb 21, 2021 History and Physical CHIEF COMPLAINT: altered mental status HISTORY OF PRESENT ILLNESS: 40-year-old male with a past medical history of IV drug use, polysubstance use, nicotine dependence was brought into ER by EMS after he was found unresponsive by his roommate. He admitted to EMS regarding taking MDMA. Patient was hypoxic on arrival required nonrebreather. He was extremely somnolent and got 2 mg of Narcan in the ER which improved his mentation. He was found to be hypothermic and required warming with labs. In addition he was hypotensive and has thus far received 2 L of normal saline with only mild improvement in his blood pressure, map of 66. Hyponatremic which was replaced with oral potassium. He was found to have elevated lactic acid of 4.3. As well as hyponatremia to 149. Initial blood gas showed respiratory acidosis repeat ABG showed improvement after nonrebreather. Patient was transitioned to 2 L of nasal cannula. CT abdomen showed possible enteritis versus colitis. CT head showed chronic encephalomalacia versus arachnoid cyst in the inferior aspect of the anterior right frontal lobe. Given high possibility of sepsis patient was started on Levaquin due to penicillin allergy. Patient will be admitted to hospital service to the ICU for management of acute drug overdose with possible sepsis. PAST MEDICAL HISTORY: IVDU Polysubstance abuse Nicotine dependence PAST SURGICAL HISTORY: Hand surgery SOCIAL HISTORY: IVDU Polysubstance abuse Smoker ALLERGIES: Please see below. REVIEW OF SYSTEMS: 10 point ROS conducted, relevant findings are noted in HPI. HOME MEDICATIONS: Please see below. PHYSICAL EXAMINATION: VITAL SIGNS: please see below General: NAD, comfortable HEENT: PERRLA, EOMI, sclerae clear Neck: supple, normal ROM, no JVD Respiratory: lungs CTAB, no wheeze, no rales, no crackles CVS: RRR, normal S1, S2, no murmurs Abdo: soft, no masses, no hepatosplenomegaly, BS+, no rebound tenderness Extremities: no edema, pulses 2+ MSK: no joint deformities, normal ROM Neuro: no focal neuro deficits, moving all 4 extremities, CN2-12 intact. Strength 5/5 in all 4 extremities. No nystagmus. Psych: calm, cooperative, AAO x 3 LABORATORY DATA: See below. IMAGING: CT abdo pelvis w IV contrast (02/21/21): LUNG BASES: Elevated interstitial markings at the lung bases may be secondary to edema or interstitial pneumonitis. Noncalcified 11.4 and 7.9 mm nodules seen within the left lower lobe (image 3, image 7, series 201) of uncertain significance. Clinical correlation with risk factors is advised. For patients at low risk (minimal or absent history of smoking and of other known risk factors), recommend CT Chest at 3-6 months, then consider CT Chest at 18-24 months. For patients at high risk (history of smoking or of other known risk factors), recommend CT Chest at 3-6 months, then CT Chest at 18-24 months. (Reference: Russell). - VASCULAR: No abdominoaortic aneurysm, dissection or retroperitoneal hematoma. There is calcified and noncalcified aortoiliac atherosclerosis. - PERITONEAL : No free air. Small amount of free fluid noted. - GI: No hiatal hernia. The stomach is distended with ingested material and air-fluid level up to 25 cm in length. Clinical correlation for gastroparesis or gastric outlet obstruction versus vigorous recent ingestion. There appears to be pyloric wall thickening. This could be artifactual but pyloric edema cannot be excluded. Correlation with endoscopy or upper GI to exclude a non perforated ulcer or other pyloric abnormality is advised. - There is slight fluid-filled distention of the proximal duodenum. Nonspecific fluid-filled small bowel loops in the pelvis. Some small bowel loops appear slightly thick-walled with elevated magda intestinal vascularity. This could be secondary to enteritis. No appearance of a complete small-bowel obstruction. For further evaluation of small-bowel loops, consider small-bowel follow-through. - Scattered fecal material and gas slightly distending portions of the colon and rectum could be correlated for constipation. Some portions of the colon appear slightly thick-walled. There is mild mucosal enhancement at the ascending colon with mild surrounding edema. Findings are suspicious for mild colitis of uncertain cause. No evidence of acute diverticulitis. The appendix does not appear to be inflamed. - HEPATOBILIARY, PANCREAS, SPLEEN: Hepatic length is 18.8 cm. Evaluation of the liver is slightly compromised by extrinsic artifacts. No calcified gallstones are seen. The common bile duct is not dilated. No pancreatic inflammation. Spleen not enlarged. 10 mm hypodense splenic lesion. Anteriorly of uncertain significance. This is indeterminate but could represent a cyst. For patients without history of cancer, recommend follow-up MRI in 6-12 months. With history of cancer, recommend evaluation with non-emergent PET vs. MRI vs. biopsy. - ADRENALS, KIDNEYS, BLADDER, RETROPERITONEAL: Adrenals within normal limits. No hydronephrosis. Symmetric renal enhancement. No bladder wall thickening. The urinary bladder appears slightly thick-walled. This could be artifactual secondary to insufficient distention but correlation with any symptoms is advised. The prostate does not appear enlarged. Central prostate calcification noted. Scrotal edema cannot be excluded. - MUSCULOSKELETAL: Mild degenerative changes of the spine and pelvis. - IMPRESSION: Multiple gastrointestinal findings to be correlated clinically with the patient's symptoms are discussed above in detail. - Small amount of free fluid within the peritoneal cavity. This is abnormal in a male patient. - Indeterminate pulmonary nodules. Indeterminate splenic lesion. Nonemergent recommendations discussed above MICROBIOLOGY: Please see below. ASSESSMENT: 40 yo M with a hx of IVDU/polysubstance abuse, admitted for acute drug overdose, as well as hypotension likely 2/2 sepsis possibly from GI source. Started on empiric Levaquin. Ongoing aggressive fluid resuscitation. Admit to ICU. . PLAN: #AMS: likely 2/2 acute drug OD, admitted to MDMA use to EMS. Improved mentation s/p 2 mg narcan. Neuro checks. CT head showing chronic findings. PFS consult. #Sepsis: hypotermic to 93F. Requires warming lamps. Hypotensive despite fluid resuscitation. S/p 2L NS bolus. Dr. Membreno consulted for central line placement. Given empiric Levaquin due to PCN allergy. Convert to vancomycin and cefepime. Add metronidazole. F/u blood cultures. UA via cath. Placed rodriguez for critical monitoring. Obtain 2D Echo. #Colitis: seen on CT. C/w vanco, cefepime, metronidazole. #Pyloric wall thickening: noted on CT abdo. Outpatient EGD. #IVDU: possibly source of infection. Obtain blood cultures. #Pulmonary nodules: surveillance outpatient. #Splenic lesion: seen on CT abdo. Radiologist recommending follow u with MRI 6- 12 if no hx of Ca. Dispo: admission expect to last > 2 midnights Vital Signs Vital Signs Date Time Temp Pulse Resp B/P (MAP) Pulse Ox O2 Delivery O2 Flow Rate FiO2 02/21/21 05:45 95 16 77/45 100 Nasal Cannula 2.0 02/21/21 02:10 93.9 Laboratory Data Labs 24H Laboratory Tests 2 02/21/21 01:56: Neutrophils (%) (Auto) , Nucleated Red Blood Cells % (auto) 0.0, Neutrophils 78H, Band Neutrophils 7, Lymphocytes (Manual) 10L, Monocytes (Manual) 2, Atypical Lymphocytes 3, Toxic Granulation 1+, Toxic Vacuolation 1+, Platelet Estimate NORMAL, Anion Gap 7L, Glomerular Filtration Rate > 60.0, Calcium Level 7.9L, Total Bilirubin 0.5, Direct Bilirubin 0.2, Aspartate Amino Transf ( T/SGOT) 634H, Alanine Aminotransferase (ALT/SGPT) 272H, Alkaline Phosphatase 116, Total Creatine Kinase 109, Creatine Kinase MB 1.1, Creatine Kinase MB Relative Index 1.01, Troponin I < 0.02, Total Protein 5.4L, Albumin 2.6L, Albumin/Globulin Ratio 0.9, Lipase 124, Thyroid Stimulating Hormone (TSH) 2.620, Salicylates Level < 1.7L, Acetaminophen Level 17.6, Ethyl Alcohol Level < 0.003 02/21/21 02:06: Blood Gas Bicarbonate Standard 21.4L, Arterial Blood pH 7.301L, Arterial Blood Partial Pressure CO2 48.9H, Arterial Blood Partial Pressure O2 45.1*L, Arterial Blood Total CO2 25.1, Arterial Blood HCO3 23.6, Arterial Blood Base Excess - 3.2L, Arterial Blood Oxygen Saturation 78.7L 02/21/21 02:08: Bedside Glucose (Misc Panel) 122H 02/21/21 03:15: Lactic Acid Level 4.3*H, Coronavirus (COVID-19)(PCR) POSITIVEA, Influenza Type A (RT-PCR) NEGATIVE, Influenza Type B (RT-PCR) NEGATIVE, Respiratory Syncytial Virus (PCR) NEGATIVE 02/21/21 03:42: Blood Gas Bicarbonate Standard 22.5, Arterial Blood pH 7.349L, Arterial Blood Partial Pressure CO2 43.1, Arterial Blood Partial Pressure O2 127.1H, Arterial Blood Total CO2 24.5, Arterial Blood HCO3 23.2, Arterial Blood Base Excess - 2.4L, Arterial Blood Oxygen Saturation 98.2 CBC/BMP Laboratory Tests 02/21/21 01:56 Microbiology Microbiology 02/21/21 Blood Culture, Received Pending 02/21/21 Blood Culture, Received Pending Home Medications Scheduled Famotidine (Pepcid) 20 Mg Tablet, 20 MG PO BID Naproxen (Naproxen) 500 Mg Tablet, 500 MG PO BID Prednisone (Prednisone) 20 Mg Tablet, 60 MG PO DAILY Scheduled PRN Diphenhydramine HCl (Benadryl) 25 Mg Capsule, 2 CAP PO Q6-8HP PRN for ITCHING/SWELLING Allergies Coded Allergies: SEAFOOD (Verified Allergy, Intermediate, 05/11/20) hives Penicillins (Verified Allergy, Mild, HIVES, 08/07/18) MIKAYLA MORALES MD Feb 21, 2021 06:25
[2021-02-21] MEDS ORDERED: LORazepam 2 MG TAB PO PRN (06:30)
--- OUTSIDE RECORDS SUMMARY | 2021-02-21 06:34 | CCD ---
Author Author [facility] Organization [facility] Address Unknown Phone Unavailable Care Team Providers Care Petroleum Engineer Name Role Phone Ajay Perez ARCH PAD CEMENTER Unavailable Unavailable Ajay Perez NP Unavailable Unavailable [...] is protected by Article 27-F of the [facility] Public Health law. If you continue you may have access to information: Regarding HIV / AIDS; Provided by facilities licensed or operated by the [facility] Office of Mental Health; or Provided by the [facility] Office for People With Developmental Disabilities. If such information is present, then the following [facility] mandated warning applies: This information has [...] law may result in a fine or penitentiary sentence or both. A general authorization for the release of medical or other information is NOT sufficient authorization for further disc losure. Allergies and Adverse Reactions Type Description Substance Reaction Status Data Source(s ) Propensity to adverse reactions NKDA [facility]DA [facility]) Propensity to adverse reactions Propensity to adverse reactions NKDA MEDENT ([facility]) Encounters Encounter Providers Location Date Indications Data Source(s ) Attender: Veronica Hammond 01/03/2021 12:00:00 A M EDT [facility] ([facility]) Extended Individual Psychotherapy - 45 min Attender: Jd Sternzay [facility] 01/01/2021 09:45:00 AM EDT - 01/01/2021 09:45:00 AM EDT [facility] ([facility]) Correction - Case Management Attender: Veronica Hammond [facility] 12/30/2020 08:15:00 AM EDT - 12/30/2020 08:15:00 AM EDT [facility] ([facility]) Attender: Veronica Hammond 12/30/2020 12:00:00 A M EDT [facility] ([facility]) Attender: Veronica Hammond 12/12/2020 12:00:00 A M EDT [facility] ([facility]) Extended Individual Psychotherapy - 45 min Attender: Jd Sternzay [facility] 12/11/2020 09:15:00 AM EDT - 12/11/2020 09:15:00 AM EDT [facility] ([facility]) Attender: Diana Monaco 12/02/2020 12:00:00 AM E DT [facility] ([facility]) Extended Individual Psychotherapy - 45 min Attender: Adin Monaco [facility] 11/29/2020 01:00:00 AM EDT - 11/29/2020 01:00:00 AM EDT [facility] ([facility]) Telemed Diagnostic Eval Attender: Ramy Perez NP [facility] 10/22/2020 09:00:00 AM EDT - 10/22/2020 09:00:00 AM EDT [facility] ([facility]) Attender: Ramy Perez NP 10/22/2020 12:00:00 AM EDT [facility] ([facility]) Attender: Veronica Hammond 10/18/2020 12:00:00 A M EDT [facility] ([facility]) Extended Individual Psychotherapy - 45 min Attender: Jd maldonado [facility] 10/16/2020 08:45:00 AM EDT - 10/16/2020 08:45:00 AM EDT [facility] ([facility]) Attender: Veronica Hammond 09/24/2020 12:00:00 A M EDT [facility] ([facility]) Extended Individual Psychotherapy - 45 min Attender: Jd maldonado [facility] 09/23/2020 01:30:00 AM EDT - 09/23/2020 01:30:00 AM EDT [facility] ([facility]) Extended Individual Psychotherapy - 45 min Attender: Adin Monaco [facility] 09/03/2020 08:30:00 AM EDT - 09/03/2020 08:30:00 AM EDT [facility] ([facility]) Attender: Diana Monaco 09/03/2020 12:00:00 AM E DT [facility] ([facility]) Extended Individual Psychotherapy - 45 min Attender: Adin Monaco [facility] 07/26/2020 09:30:00 AM EDT - 07/26/2020 09:30:00 AM EDT [facility] ([facility]) Attender: Diana Monaco 07/26/2020 12:00:00 AM E DT [facility] ([facility]) Correction - Case Management Attender: Diana Carlos Enrique [facility] 07/03/2020 10:15:00 AM EDT - 07/03/2020 10:15:00 AM EDT [facility] ([facility]) Attender: Diana Monaco 07/03/2020 12:00:00 AM E DT [facility] ([facility]) Brief Individual Psychotherapy - 30 min [facility] 06[facility]17/2020 10:00:00 AM EST - 06/17/2020 10:00:00 AM EST [facility] ([facility]) Attender: Diana Monaco 06/17/2020 12:00:[address] [facility] ([facility]) Extended Individual Psychotherapy - 45 min Attender: Adin Monaco [facility] 05/17/2020 12:15:00 PM EST - 05/17/2020 12:15:00 PM EST [facility] ([facility]) Attender: Diana Monaco 05/17/2020 12:00:[address] [facility] ([facility]) Functional Status Immunizations Vaccine Date Status Description Data Source(s) COVID-19 VACCINE Junito 07/22/2020 12:00:00 AM EDT completed NYSIIS Vaccine Series Complete: YESThis Data wa s Submitted to [facility] Via Next audience. Medications Medication Brand Name Start Date Product Form Dose Route Admi nistrative Instructions Pharmacy Instructions Status Indications Reaction Description Data Source(s) Trazodone Hydrochloride 50 MG Oral Tablet trazodone 2020 12:00:00 AM EDT 50 mg by mouth completed <td ID="Medic ationRxNorm_3">549320</td><td ID="MedicationMedication_3">trazodone</td><td ID="MedicationRoute_3">by mouth</td><td ID="MedicationRouteConcept_3">V55929</td><td ID="MedicationStartDate_3">10/22/2020</td><td ID="MedicationStopDate_3">05/21/2021</td><td ID="MedicationDosageFrequency_3">at bedtime</td><td ID="MedicationDuration_3">30</td><td ID="MedicationFormulaStrength_3">50 mg</td><td ID="MedicationDosageForm_3">tablet</td><td ID="MedicationDosageFormCode_3"></td><td ID="MedicationDosageDescription_3">as needed</td><td ID="MedicationMedicationId_3">[id number]</td><td ID="MedicationAccount_3">[id number]</td><td ID="MedicationNpid_3">[id number]</td><td ID="MedicationAuthorFirstName_3">Ramy</td><td ID="MedicationAuthorLastName_3">Perez</td><td ID="MedicationTaxonomyCode_3">[id number]</td><td ID="MedicationTaxonomyDesc_3">Nurse Practitioner</td><td ID="MedicationPhoneNumber_3">[phone]</td> [facility] ([facility]) Trazodone Hydrochloride 50 MG Oral Tablet trazodone 2020 12:00:00 AM EDT 50 mg by mouth completed <td ID="Medic ationRxNorm_1">716096</td><td ID="MedicationMedication_1">trazodone</td><td ID="MedicationRoute_1">by mouth</td><td ID="MedicationRouteConcept_1">I74771</td><td ID="MedicationStartDate_1">10/22/2020</td><td ID="MedicationStopDate_1">03/01/2021</td><td ID="MedicationDosageFrequency_1">at bedtime</td><td ID="MedicationDuration_1">30</td><td ID="MedicationFormulaStrength_1">50 mg</td><td ID="MedicationDosageForm_1">tablet</td><td ID="MedicationDosageFormCode_1"></td><td ID="MedicationDosageDescription_1">as needed</td><td ID="MedicationMedicationId_1">[id number]</td><td ID="MedicationAccount_1">[id number]</td><td ID="MedicationNpid_1">[id number]</td><td ID="MedicationAuthorFirstName_1">Ramy</td><td ID="MedicationAuthorLastName_1">Perez</td><td ID="MedicationTaxonomyCode_1">[id number]</td><td ID="MedicationTaxonomyDesc_1">Nurse Practitioner</td><td ID="MedicationPhoneNumber_1">[phone]</td> [facility] Prazosin 1 MG Oral Capsule prazosin 10/22/2020 12:00:00 AM EDT 1 mg by mouth completed <td ID="Medicat ionRxNorm_2">571628</td><td ID="MedicationMedication_2">prazosin</td><td ID="MedicationRoute_2">by mouth</td><td ID="MedicationRouteConcept_2">U38427</td><td ID="MedicationStartDate_2">10/22/2020</td><td ID="MedicationStopDate_2">04/20/2021</td><td ID="MedicationDosageFrequency_2">at bedtime</td><td ID="MedicationDuration_2">30</td><td ID="MedicationFormulaStrength_2">1 mg</td><td ID="MedicationDosageForm_2">capsule</td><td ID="MedicationDosageFormCode_2"></td><td ID="MedicationDosageDescription_2"></td><td ID="MedicationMedicationId_2">[id number]</td><td ID="MedicationAccount_2">[id number]</td><td ID="MedicationNpid_2">[id number]</td><td ID="MedicationAuthorFirstName_2">Ramy</td><td ID="MedicationAuthorLastName_2">Perez</td><td ID="MedicationTaxonomyCode_2">[id number]</td><td ID="MedicationTaxonomyDesc_2">Nurse Practitioner</td><td ID="MedicationPhoneNumber_2">[phone]</td> [facility] ([facility]) Prazosin 1 MG Oral Capsule prazosin 10/22/2020 12:00:00 AM EDT 1 mg by mouth completed <td ID="Medicat ionRxNorm_4">089356</td><td ID="MedicationMedication_4">prazosin</td><td ID="MedicationRoute_4">by mouth</td><td ID="MedicationRouteConcept_4">Q07758</td><td ID="MedicationStartDate_4">10/22/2020</td><td ID="MedicationStopDate_4">04/20/2021</td><td ID="MedicationDosageFrequency_4">at bedtime</td><td ID="MedicationDuration_4">30</td><td ID="MedicationFormulaStrength_4">1 mg</td><td ID="MedicationDosageForm_4">capsule</td><td ID="MedicationDosageFormCode_4"></td><td ID="MedicationDosageDescription_4"></td><td ID="MedicationMedicationId_4">[id number]</td><td ID="MedicationAccount_4">[id number]</td><td ID="MedicationNpid_4">[id number]</td><td ID="MedicationAuthorFirstName_4">Ramy</td><td ID="MedicationAuthorLastName_4">Perez</td><td ID="MedicationTaxonomyCode_4">[id number]</td><td ID="MedicationTaxonomyDesc_4">Nurse Practitioner</td><td ID="MedicationPhoneNumber_4">[phone]</td> [facility] ([facility]) Prazosin 1 MG Oral Capsule prazosin 10/22/2020 12:00:00 AM EDT 1 mg by mouth completed <td ID="Medicat ionRxNorm_3">455896</td><td ID="MedicationMedication_3">prazosin</td><td ID="MedicationRoute_3">by mouth</td><td ID="MedicationRouteConcept_3">B87940</td><td ID="MedicationStartDate_3">10/22/2020</td><td ID="MedicationStopDate_3">03/01/2021</td><td ID="MedicationDosageFrequency_3">at bedtime</td><td ID="MedicationDuration_3">30</td><td ID="MedicationFormulaStrength_3">1 mg</td><td ID="MedicationDosageForm_3">capsule</td><td ID="MedicationDosageFormCode_3"></td><td ID="MedicationDosageDescription_3"></td><td ID="MedicationMedicationId_3">01060</td><td ID="MedicationAccount_3">[id number]</td><td ID="MedicationNpid_3">[id number]</td><td ID="MedicationAuthorFirstName_3">Ramy</td><td ID="MedicationAuthorLastName_3">Perez</td><td ID="MedicationTaxonomyCode_3">[id number]</td><td ID="MedicationTaxonomyDesc_3">Nurse Practitioner</td><td ID="MedicationPhoneNumber_3">[phone]</td> [facility] ([facility]) Escitalopram 10 MG Oral Tablet escitalopram oxalate 10/22/2020 1 2:00:00 AM EDT 10 mg by mouth completed <td ID="Medic ationRxNorm_2">324122</td><td ID="MedicationMedication_2">escitalopram oxalate</td><td ID="MedicationRoute_2">by mouth</td><td ID="MedicationRouteConcept_2">T14493</td><td ID="MedicationStartDate_2">10/22/2020</td><td ID="MedicationStopDate_2">03/01/2021</td><td ID="MedicationDosageFrequency_2">once a day</td><td ID="MedicationDuration_2">30</td><td ID="MedicationFormulaStrength_2">10 mg</td><td ID="MedicationDosageForm_2">tablet</td><td ID="MedicationDosageFormCode_2"></td><td ID="MedicationDosageDescription_2"></td><td ID="MedicationMedicationId_2">[id number]</td><td ID="MedicationAccount_2">[id number]</td><td ID="MedicationNpid_2">[id number]</td><td ID="MedicationAuthorFirstName_2">Ramy</td><td ID="MedicationAuthorLastName_2">Perez</td><td ID="MedicationTaxonomyCode_2">[id number]</td><td ID="MedicationTaxonomyDesc_2">Nurse Practitioner</td><td ID="MedicationPhoneNumber_2">[phone]</td> [facility] Escitalopram 10 MG Oral Tablet escitalopram oxalate 10/22/2020 1 2:00:00 AM EDT 10 mg by mouth completed <td ID="Medic ationRxNorm_3">318067</td><td ID="MedicationMedication_3">escitalopram oxalate</td><td ID="MedicationRoute_3">by mouth</td><td ID="MedicationRouteConcept_3">S25863</td><td ID="MedicationStartDate_3">10/22/2020</td><td ID="MedicationStopDate_3">04/20/2021</td><td ID="MedicationDosageFrequency_3">once a day</td><td ID="MedicationDuration_3">30</td><td ID="MedicationFormulaStrength_3">10 mg</td><td ID="MedicationDosageForm_3">tablet</td><td ID="MedicationDosageFormCode_3"></td><td ID="MedicationDosageDescription_3"></td><td ID="MedicationMedicationId_3">[id number]</td><td ID="MedicationAccount_3">[id number]</td><td ID="MedicationNpid_3">[id number]</td><td ID="MedicationAuthorFirstName_3">Ramy</td><td ID="MedicationAuthorLastName_3">Perez</td><td ID="MedicationTaxonomyCode_3">[id number]</td><td ID="MedicationTaxonomyDesc_3">Nurse Practitioner</td><td ID="MedicationPhoneNumber_3">[phone]</td> [facility] ([facility]) Escitalopram 10 MG Oral Tablet escitalopram oxalate 10/22/2020 1 2:00:00 AM EDT 10 mg by mouth completed <td ID="Medic ationRxNorm_1">334117</td><td ID="MedicationMedication_1">escitalopram oxalate</td><td ID="MedicationRoute_1">by mouth</td><td ID="MedicationRouteConcept_1">U88697</td><td ID="MedicationStartDate_1">10/22/2020</td><td ID="MedicationStopDate_1">04/20/2021</td><td ID="MedicationDosageFrequency_1">once a day</td><td ID="MedicationDuration_1">30</td><td ID="MedicationFormulaStrength_1">10 mg</td><td ID="MedicationDosageForm_1">tablet</td><td ID="MedicationDosageFormCode_1"></td><td ID="MedicationDosageDescription_1"></td><td ID="MedicationMedicationId_1">47258</td><td ID="MedicationAccount_1">[id number]</td><td ID="MedicationNpid_1">[id number]</td><td ID="MedicationAuthorFirstName_1">Ramy</td><td ID="MedicationAuthorLastName_1">Perez</td><td ID="MedicationTaxonomyCode_1">[id number]</td><td ID="MedicationTaxonomyDesc_1">Nurse Practitioner</td><td ID="MedicationPhoneNumber_1">[phone]</td> [facility] Trazodone Hydrochloride 50 MG Oral Tablet trazodone 2020 12:00:00 AM EDT 50 mg by mouth completed <td ID="Medic ationRxNorm_5">288255</td><td ID="MedicationMedication_5">trazodone</td><td ID="MedicationRoute_5">by mouth</td><td ID="MedicationRouteConcept_5">W23791</td><td ID="MedicationStartDate_5">10/22/2020</td><td ID="MedicationStopDate_5">04/20/2021</td><td ID="MedicationDosageFrequency_5">at bedtime</td><td ID="MedicationDuration_5">30</td><td ID="MedicationFormulaStrength_5">50 mg</td><td ID="MedicationDosageForm_5">tablet</td><td ID="MedicationDosageFormCode_5"></td><td ID="MedicationDosageDescription_5"></td><td ID="MedicationMedicationId_5">[id number]</td><td ID="MedicationAccount_5">[id number]</td><td ID="MedicationNpid_5">[id number]</td><td ID="MedicationAuthorFirstName_5">Ramy</td><td ID="MedicationAuthorLastName_5">Perez</td><td ID="MedicationTaxonomyCode_5">[id number]</td><td ID="MedicationTaxonomyDesc_5">Nurse Practitioner</td><td ID="MedicationPhoneNumber_5">[phone]</td> [facility] ([facility]) Famotidine 20 MG Oral Tablet [...] EST 10 mg by mouth completed <td ID="Ct dicationRxNorm_1">552756</td><td ID="MedicationMedication_1">Zyprexa</td><td ID="MedicationRoute_1">by mouth</td><td ID="MedicationRouteConcept_1">D60544</td><td ID="MedicationStartDate_1">04/30/2016</td><td ID="MedicationStopDate_1">10/22/2020</td><td ID="MedicationDosageFrequency_1">at bedtime</td><td ID="MedicationDuration_1"></td><td ID="MedicationFormulaStrength_1">10 mg</td><td ID="MedicationDosageForm_1">tablet</td><td ID="MedicationDosageFormCode_1"></td><td ID="MedicationDosageDescription_1"></td><td ID="MedicationMedicationId_1">73962</td><td ID="MedicationAccount_1">[id number]</td><td ID="MedicationNpid_1">[id number]</td><td ID="MedicationAuthorFirstName_1">Temi</td><td ID="MedicationAuthorLastName_1">Baillargeon</td><td ID="MedicationTaxonomyCode_1">[id number]</td><td ID="MedicationTaxonomyDesc_1">Psychiatric/Mental Health</td><td ID="MedicationPhoneNumber_1">[phone]</td> [facility] ([facility]) Fluoxetine 20 MG Oral Capsule [Prozac] Prozac 04/30/2016 12:0 0:00 AM EST 20 mg completed <td ID="Me dicationRxNorm_2">079030</td><td ID="MedicationMedication_2">Prozac</td><td ID="MedicationRoute_2"></td><td ID="MedicationRouteConcept_2"></td><td ID="MedicationStartDate_2">04/30/2016</td><td ID="MedicationStopDate_2">10/22/2020</td><td ID="MedicationDosageFrequency_2">every morning</td><td ID="MedicationDuration_2"></td><td ID="MedicationFormulaStrength_2">20 mg</td><td ID="MedicationDosageForm_2">capsule</td><td ID="MedicationDosageFormCode_2"></td><td ID="MedicationDosageDescription_2">as directed</td><td ID="MedicationMedicationId_2">15604</td><td ID="MedicationAccount_2">[id number]</td><td ID="MedicationNpid_2">[id number]</td><td ID="MedicationAuthorFirstName_2">Temi</td><td ID="MedicationAuthorLastName_2">Baillargeon</td><td ID="MedicationTaxonomyCode_2">[id number]</td><td ID="MedicationTaxonomyDesc_2">Psychiatric/Mental Health</td><td ID="MedicationPhoneNumber_2">[phone]</td> [facility] ([facility]) Insurance Providers Payer name Policy type / Coverage type Policy ID Covered constitution party ID Covered constitution party's relationship to sapp Policy Sapp Plan Information Medicaid P [id number] [facility] [id number] SP [id number] MEDICAID [id number] SP [id number] [facility] DEPT [id number] SP [id number] SELF PAY ONLY [id number] SP [id number] [facility] [id number] SP [id number] [facility] [id number] SP [id number] SELF PAY ONLY UNAVAILABLE UNAV AILABLE SELF PAY UNAVAILABLE UNAVAILA BLE MEDICAID [id number] SP [id number] [facility] CONFIGURATION TECHNICIAN DEPT [id number] SP [id number] [facility] PLAN [id number] SP [id number] Problems, Conditions, and Diagnoses Code Display Name Description Problem Type Effective Dates Data Source(s) F10.20 Alcohol dependence, uncomplicated Alcohol Use Di sorder, Moderate Condition 01/03/2021 12:00:00 AM EDT [facility] ([facility]) F15.20 Other stimulant dependence, uncomplicate d Stimulant Use Disorder, Moderate: Amphetamine-type substance Condition 01/03/2021 12:00:00 AM EDT [facility] ([facility]) F41.9 Anxiety disorder, unspecified Unspecified Anxiety Diso rder Condition 01/03/2021 12:00:00 AM EDT [facility] ([facility]) F43.12 Post-traumatic stress disorder, chronic Post-traumatic stress disorder, chronic Condition 01/03/2021 12:00:00 AM EDT [facility] ([facility]) F43.8 Other reactions to severe stress Other S pecified Trauma- and Stressor- Related Disorder Condition 10/18/2020 12:00:00 AM EDT [facility] ([facility]) F31.62 Bipolar disorder, current episode mixed, moderate Bipolar disorder, current episode mixed, moderate Condition 10/18/2020 12:00:00 AM EDT [facility] ([facility]) Surgeries/Procedures Procedure Description Date Indications Data Source(s) Extended Individual Psychotherapy - 45 min 01/03/2021 12:00:00 AM EDT - 01/03/2021 12:00:00 AM EDT [facility] ([facility]) Extended Individual Psychotherapy - 45 min 12:00:00 AM EDT [facility] ([facility]) Correction - Case Management 12/30/2020 12:00: 00 AM EDT - 12/30/2020 12:00:00 AM EDT [facility] ([facility]) Correction - Case Management 12/30/2020 12:00:00 AM EDT [facility] ([facility]) Extended Individual Psychotherapy - 45 min 12/12/2020 12:00:00 AM EDT - 12/12/2020 12:00:00 AM EDT [facility] ([facility]) Extended Individual Psychotherapy - 45 min 12:00:00 AM EDT [facility] ([facility]) Extended Individual Psychotherapy - 45 min 12/02/2020 12:00:00 AM EDT - 12/02/2020 12:00:00 AM EDT [facility] ([facility]) Extended Individual Psychotherapy - 45 min 12:00:00 AM EDT [facility] ([facility]) Telemed Diagnostic Eval 10/22/2020 12:00 :00 AM EDT - 10/22/2020 12:00:00 AM EDT [facility] ([facility]) Telemed Diagnostic Eval 10/22/2020 12:00:00 AM EDT [facility] ([facility]) Extended Individual Psychotherapy - 45 min 10/18/2020 12:00:00 AM EDT - 10/18/2020 12:00:00 AM EDT [facility] ([facility]) Extended Individual Psychotherapy - 45 min 12:00:00 AM EDT [facility] ([facility]) Extended Individual Psychotherapy - 45 min 09/24/2020 12:00:00 AM EDT - 09/24/2020 12:00:00 AM EDT [facility] ([facility]) Extended Individual Psychotherapy - 45 min 12:00:00 AM EDT [facility] ([facility]) Extended Individual Psychotherapy - 45 min 09/03/2020 12:00:00 AM EDT - 09/03/2020 12:00:00 AM EDT [facility] ([facility]) Extended Individual Psychotherapy - 45 min 12:00:00 AM EDT [facility] ([facility]) Extended Individual Psychotherapy - 45 min 07/26/2020 12:00:00 AM EDT - 07/26/2020 12:00:00 AM EDT [facility] ([facility]) Extended Individual Psychotherapy - 45 min 12:00:00 AM EDT [facility] ([facility]) Correction - Case Management 07/03/2020 12:00: 00 AM EDT - 07/03/2020 12:00:00 AM EDT [facility] ([facility]) Correction - Case Management 07/03/2020 12:00:00 AM EDT [facility] ([facility]) Brief Individual Psychotherapy - 30 min 06/17/2020 12:00:00 AM EST - 06/17/2020 12:00:00 AM EST [facility] ([facility]) Brief Individual Psychotherapy - 30 min 06/17/2020 12: 00:00 AM EST [facility] ([facility]) Extended Individual Psychotherapy - 45 min 05/17/2020 12:00:00 AM EST - 05/17/2020 12:00:00 AM EST [facility] ([facility]) Extended Individual Psychotherapy - 45 min 12:00:00 AM EST [facility] ([facility]) Results No Information Social History Code Duration Value Status Description Data Source(s ) Smoking 01/03/2021 12:00:00 AM EDT Unknown if ever smoked comp leted Unknown if ever smoked [facility] ([facility]) Smoking 12/30/2020 12:00:00 AM EDT Unknown if ever smoked comp leted Unknown if ever smoked [facility] ([facility]) Smoking 12/12/2020 12:00:00 AM EDT Unknown if ever smoked comp leted Unknown if ever smoked [facility] ([facility]) Smoking 12/02/2020 12:00:00 AM EDT Unknown if ever smoked comp leted Unknown if ever smoked [facility] ([facility]) Smoking 10/22/2020 12:00:00 AM EDT Unknown if ever smoked comp leted Unknown if ever smoked [facility] ([facility]) Smoking 10/18/2020 12:00:00 AM EDT Unknown if ever smoked comp leted Unknown if ever smoked [facility] ([facility]) Smoking 09/24/2020 12:00:00 AM EDT Unknown if ever smoked comp leted Unknown if ever smoked [facility] ([facility]) Smoking 09/03/2020 12:00:00 AM EDT Unknown if ever smoked comp leted Unknown if ever smoked [facility] ([facility]) Smoking 07/26/2020 12:00:00 AM EDT Unknown if ever smoked comp leted Unknown if ever smoked [facility] ([facility]) Smoking 07/03/2020 12:00:00 AM EDT Unknown if ever smoked comp leted Unknown if ever smoked [facility] ([facility]) Smoking 06/17/2020 12:00:00 AM EST Unknown if ever smoked comp leted Unknown if ever smoked [facility] ([facility]) Smoking 05/17/2020 12:00:00 AM EST Unknown if ever smoked comp leted Unknown if ever smoked [facility] ([facility]) Vital Signs ID Date Data Source UNK Name Value Range Interpretation Code Description Data Source(s) Body weight 134.00 [lb_av] 134.00 [lb_av] [facility] ([facility]) Systolic blood pressure 101 mm[Hg] 101 mm[Hg] M [facility] ([facility]) Diastolic blood pressure 59 mm[Hg] 59 mm[Hg[facility] Heart rate 77 /min 77 /min [facility] ([facility]) Respiratory rate 20 /min 20 /min [facility] ( [facility]) Body temperature 97.4 [degF] 97.4 [degF] [facility] Systolic blood pressure 140 mm[Hg] 140 mm[Hg] [facility] ([facility]) Diastolic blood pressure 80 mm[Hg] 80 mm[Hg] [facility] ([facility]) Heart rate 99 /min 99 /min [facility] ([facility]) Respiratory rate 18 /min 18 /min [facility] ( [facility]) Body temperature 97.7 [degF] 97.7 [degF] [facility] Body weight 128.00 [lb_av] 128.00 [lb_av] [facility] ([facility])
--- NOTE | 2021-02-21 06:55 | ED PDOC ---
Post-Departure Follow-Up ED Attending Note Blood pressure improving 103/62 on Levophed drip. Mentation improved. Dr. Membreno consulted for central line and was gracious to see patient in ED however patient refusing central line at this time, Dr. Membreno recommends continuing Levophed and watching the peripheral line closely at this time. Hospitalist team made aware of this development as well. ANITHA LYNN MD Feb 21, 2021 06:55
[2021-02-21 06:56] LABS: AMPHETAMINES LEVEL URINE POSITIVE (NEGATIVE); BARBITURATES URINE NEGATIVE (NEGATIVE); BENZODIAZEPINES URINE NEGATIVE (NEGATIVE); CANNABINOIDS URINE NEGATIVE (NEGATIVE); COCAINE METABOLITE URINE NEGATIVE (NEGATIVE); METHADONE URINE NEGATIVE (NEGATIVE); OPIATES URINE POSITIVE (NEGATIVE); PHENCYCLIDINE URINE NEGATIVE (NEGATIVE)
[2021-02-21] MEDS ORDERED: VANCOMYCIN HCL 750 MG, VIAL MATE ADAPTER 1 EACH in NS 250 ML IV ONE (07:00)
--- NOTE | 2021-02-21 07:02 | ROOPDOC ---
[facility] Report Of Operation Report of Operation Consulted by emergency department to place a central line due to ongoing septic shock and requiring Levophed. However, patient refused despite multiple attempts/sites including IJ, subclavian, femoral offered. Risk of critical limb ischemia and amputation with running vasopressor through peripheral IV was explained. Patient has mental capacity for decision-making. TERRENCE OLIVARES MD Feb 21, 2021 07:02
[2021-02-21] MEDS ORDERED: VANCOMYCIN HCL 500 MG in D5W MINI-BAG PLUS 100 ML IV ONE (08:00)
[2021-02-21] MEDS ORDERED: CEFEPIME HCL 1 GM in D5W MINI-BAG PLUS 50 ML IV SCH (08:00)
[2021-02-21 08:26] LABS: HEMATOCRIT 43.7 % (42.0-52.0); HEMOGLOBIN 14.3 g/dl (13.5-17.5); MEAN CORPUSCULAR HEMOGLOBIN 30.8 pg (27.0-33.0); MEAN CORPUSCULAR HGB CONC 32.7 g/dl (32.0-36.5); PLATELET COUNT, AUTOMATED 315 10^3/uL (150-450); RED BLOOD COUNT 4.65 10^6/uL (4.30-6.10); WHITE BLOOD COUNT 12.6 10^3/uL (4.0-10.0)
[2021-02-21 08:53] LABS: ATYPICAL LYMPH 1 % (0-5); LYMPHOCYTES 4 % (16-44); MONOCYTES 4 % (0-5); NEUTROPHILS 67 % (28-66); PLATELET CLUMPS SMALL AMT; PLATELET ESTIMATE NORMAL (NORMAL)
[2021-02-21 08:57] LABS: ALBUMIN 2.2 GM/DL (3.2-5.2); ALT/SGPT 436 U/L (12-78); BILIRUBIN,TOTAL 0.4 MG/DL (0.2-1.0); BLOOD UREA NITROGEN 10 MG/DL (7-18); CALCIUM LEVEL 7.8 MG/DL (8.5-10.1); CARBON DIOXIDE LEVEL 21 MEQ/L (21-32); CHLORIDE LEVEL 114 MEQ/L (98-107); CREATININE FOR GFR 0.94 MG/DL (0.70-1.30); GLOMERULAR FILTRATION RATE > 60.0 (>60); GLUCOSE, FASTING 126 MG/DL (70-100); MAGNESIUM LEVEL 1.7 MG/DL (1.8-2.4); POTASSIUM SERUM 4.1 MEQ/L (3.5-5.1); SODIUM LEVEL 145 MEQ/L (136-145); TOTAL PROTEIN 4.9 GM/DL (6.4-8.2)
[2021-02-21 09:00] VITALS: BP 95/55
[2021-02-21] MEDS ORDERED: FOLIC ACID 1 MG TAB PO SCH (09:00)
[2021-02-21] MEDS ORDERED: THIAMINE 100 MG TAB PO SCH (09:00)
[2021-02-21] MEDS ORDERED: MULTIVITAMINS/MINERALS THERAP 1 TAB PO SCH (09:00)
[2021-02-21] MEDS ORDERED: metroNIDAZOLE 500 MG in IV 1 EA IV SCH (10:00)
--- NOTE | 2021-02-21 10:56 | DS.PDOC ---
Discharge Summary General Date of Admission Feb 21, 2021 at 06:09 Date of Discharge 02/21/21 Discharge Summary PROCEDURES PERFORMED DURING STAY: [None]. DISCHARGE DIAGNOSES: Septic Shock Recreational Drug overdose -Mollly Acute metabolic encephalopathy COVID infection Transaminitis. Distended stomach filled with ingested material and air fluid level likely due to vigorous recent ingestion. Indeterminate pulmonary nodules. Indeterminate splenic lesion. Chronic constipation suspected mild Colitis. COMPLICATIONS/CHIEF COMPLAINT: Covid,Drug Overdose,Hypotension,Pulmonary Nodules. HOSPITAL COURSE: 40 yo M with a hx of IVDU/polysubstance abuse, admitted for acute metabolic encephalopathy from recreational drug overdose as well as septic shock possibly from GI source. Utox was positive for opiates and methamphetamine. He also tested positive for COVID- 19. He responded to narcan in ED with resolution of metabolic encephalopathy. Patient was managed for septic shock with fluid bolus sepsis protocol, Cefepime and vancomycin and metronidazole. He is also requiring Levophed. This am around 8 am he requested to be discharged as today was his father's . I talked to the patient explaining that he is septic and has COVID. He needs antibiotics, fluids and medications to support his blood pressure otherwise his infection is going to progress and he may from it. i also explained that he should not be going to the as he is COVID positive and needs to be on quarantine. I offered that we could set him up with an ipad in his room so that he could watch the video of the . Patient still insisted on going home as he was feeling fine. He signed out AMA. ALLERGIES: Please see below. PHYSICAL EXAMINATION ON DISCHARGE: VITAL SIGNS: Please see below. GENERAL: Awake, alert oriented x 3, sitting up in bed without any distress and conversing normally HEENT: Normocephalic and atraumatic CARDIOVASCULAR EXAMINATION: S1, S2 regular, no murmur or rub or gallop RESPIRATORY EXAMINATION:Bilateral basal crackles, no ronchi or wheezing. ABDOMINAL EXAMINATION: Soft, nontender, bowel sounds present. EXTREMITIES: No edema LABORATORY DATA: Please see below. IMAGING: CT abdmen and pelvis 1.LUNG BASES: Elevated interstitial markings at the lung bases may be secondary to edema or interstitial pneumonitis. Noncalcified 11.4 and 7.9 mm nodules seen within the left lower lobe (image 3, image 7, series 201) of uncertain significance. VASCULAR: No abdominoaortic aneurysm, dissection or retroperitoneal hematoma. There is calcified and noncalcified aortoiliac atherosclerosis. - PERITONEAL : No free air. Small amount of free fluid noted. - GI: No hiatal hernia. The stomach is distended with ingested material and air-fluid level up to 25 cm in length. Clinical correlation for gastroparesis or gastric outlet obstruction versus vigorous recent ingestion. There appears to be pyloric wall thickening. This could be artifactual but pyloric edema cannot be excluded. Correlation with endoscopy or upper GI to exclude a non perforated ulcer or other pyloric abnormality is advised. - There is slight fluid-filled distention of the proximal duodenum. Nonspecific fluid-filled small bowel loops in the pelvis. Some small bowel loops appear slightly thick-walled with elevated magda intestinal vascularity. This could be secondary to enteritis. No appearance of a complete small-bowel obstruction. For further evaluation of small-bowel loops, consider small-bowel follow-through. - Scattered fecal material and gas slightly distending portions of the colon and rectum could be correlated for constipation. Some portions of the colon appear slightly thick-walled. There is mild mucosal enhancement at the ascending colon with mild surrounding edema. Findings are suspicious for mild colitis of uncertain cause. No evidence of acute diverticulitis. The appendix does not appear to be inflamed. - HEPATOBILIARY, PANCREAS, SPLEEN: Hepatic length is 18.8 cm. Evaluation of the liver is slightly compromised by extrinsic artifacts. No calcified gallstones are seen. The common bile duct is not dilated. No pancreatic inflammation. Spleen not enlarged. 10 mm hypodense splenic lesion. Anteriorly of uncertain significance. This is indeterminate but could represent a cyst. For patients without history of cancer, recommend follow-up MRI in 6-12 months. With history of cancer, recommend evaluation with non-emergent PET vs. MRI vs. biopsy. - ADRENALS, KIDNEYS, BLADDER, RETROPERITONEAL: Adrenals within normal limits. No hydronephrosis. Symmetric renal enhancement. No bladder wall thickening. The urinary bladder appears slightly thick-walled. This could be artifactual secondary to insufficient distention but correlation with any symptoms is advised. The prostate does not appear enlarged. Central prostate calcification noted. Scrotal edema cannot be excluded. - MUSCULOSKELETAL: Mild degenerative changes of the spine and pelvis. PROGNOSIS: Guarded DISPOSITION: Signed out AMA. DISCHARGE CONDITION: [Stable]. TIME SPENT ON DISCHARGE: 31 minutes. Vital Signs/I&Os Vital Signs Date Time Temp Pulse Resp B/P (MAP) Pulse Ox O2 Delivery O2 Flow Rate FiO2 02/21/21 09:00 95/55 (68) 02/21/21 08:55 78 16 100 Room Air 02/21/21 07:40 96.8 02/21/21 05:55 2.0 I&O- Last 24 Hours up to 6 AM 02/21/21 06:00 Intake Total 1000 ml Balance 1000 ml Laboratory Data Labs 24H Laboratory Tests 2 02/21/21 01:56: Neutrophils (%) (Auto) , Nucleated Red Blood Cells % (auto) 0.0, Neutrophils 78H, Band Neutrophils 7, Lymphocytes (Manual) 10L, Monocytes (Manual) 2, Atypical Lymphocytes 3, Toxic Granulation 1+, Toxic Vacuolation 1+, Platelet Estimate NORMAL, Urine Color YELLOW, Urine Appearance CLEAR, Urine pH 5.0, Urine Specific [place] 1.054, Urine Protein NEGATIVE, Urine Glucose (UA) NEGATIVE, Urine Ketones NEGATIVE, Urine Blood 2+H, Urine Nitrite NEGATIVE, Urine Bilirubin NEGATIVE, Urine Urobilinogen 2.0H, Urine Leukocyte Esterase NEGATIVE, Urine WBC (Auto) 8H, Urine RBC (Auto) 43H, Urine Hyaline Casts (Auto) 0, Urine Bacteria (Auto) NEGATIVE, Urine Squamous Epithelial Cells 0, Urine Mucus (Auto) SMALL, Urine Sperm (Auto) , Anion Gap 7L, Glomerular Filtration Rate > 60.0, Calcium Level 7.9L, Total Bilirubin 0.5, Direct Bilirubin 0.2, Aspartate Amino Transf (AST/SGOT) 634H, Alanine Aminotransferase (ALT/SGPT) 272H, Alkaline Phosphatase 116, Total Creatine Kinase 109, Creatine Kinase MB 1.1, Creatine Kinase MB Relative Index 1.01, Troponin I < 0.02, Total Protein 5.4L, Albumin 2.6L, Albumin/Globulin Ratio 0.9, Lipase 124, Thyroid Stimulating Hormone (TSH) 2.620, Salicylates Level < 1.7L, Urine Opiates Screen POSITIVEH, Urine Methadone Screen NEGATIVE, Acetaminophen Level 17.6, Urine Barbiturates Screen NEGATIVE, Urine Phencyclidine Screen NEGATIVE, Urine Amphetamines Screen POSITIVEH, Urine Benzodiazepines Screen NEGATIVE, Urine Cocaine Metabolite Screen NEGATIVE, Urine Cannabinoids Screen NEGATIVE, Ethyl Alcohol Level < 0.003 02/21/21 02:06: Blood Gas Bicarbonate Standard 21.4L, Arterial Blood pH 7.301L, Arterial Blood Partial Pressure CO2 48.9H, Arterial Blood Partial Pressure O2 45.1*L, Arterial Blood Total CO2 25.1, Arterial Blood HCO3 23.6, Arterial Blood Base Excess - 3.2L, Arterial Blood Oxygen Saturation 78.7L 02/21/21 02:08: Bedside Glucose (Misc Panel) 122H 02/21/21 03:15: Lactic Acid Level 4.3*H, Coronavirus (COVID-19)(PCR) POSITIVEA, Influenza Type A (RT-PCR) NEGATIVE, Influenza Type B (RT-PCR) NEGATIVE, Respiratory Syncytial Virus (PCR) NEGATIVE 02/21/21 03:42: Blood Gas Bicarbonate Standard 22.5, Arterial Blood pH 7.349L, Arterial Blood Partial Pressure CO2 43.1, Arterial Blood Partial Pressure O2 127.1H, Arterial Blood Total CO2 24.5, Arterial Blood HCO3 23.2, Arterial Blood Base Excess - 2.4L, Arterial Blood Oxygen Saturation 98.2 02/21/21 07:59: Neutrophils (%) (Auto) , Nucleated Red Blood Cells % (auto) 0.0, Neutrophils 67H, Band Neutrophils 24H, Lymphocytes (Manual) 4L, Monocytes (Manual) 4, Atypical Lymphocytes 1, Platelet Estimate NORMAL, Clumped Platelets SMALL AMT, Anion Gap 10, Glomerular Filtration Rate > 60.0, Calcium Level 7.8L, Magnesium Level 1.7L, Total Bilirubin 0.4, Aspartate Amino Transf (AST/SGOT) 629H, Alanine Aminotransferase (ALT/SGPT) 436H, Alkaline Phosphatase 91, Total Protein 4.9L, Albumin 2.2L, Albumin/Globulin Ratio 0.8, Procalcitonin 7.30 CBC/BMP Laboratory Tests 02/21/21 01:56 02/21/21 07:59 FSBS Laboratory Tests Test 02/21/21 02:08 Range/Units Bedside Glucose (Misc Panel) 122 70-105 MG/DL Microbiology Microbiology 02/21/21 Blood Culture, Received Pending 02/21/21 Blood Culture, Received Pending Discharge Medications Scheduled Famotidine (Pepcid) 20 Mg Tablet, 20 MG PO BID Naproxen (Naproxen) 500 Mg Tablet, 500 MG PO BID, (Reported) Prednisone (Prednisone) 20 Mg Tablet, 60 MG PO DAILY Scheduled PRN Diphenhydramine HCl (Benadryl) 25 Mg Capsule, 2 CAP PO Q6-8HP PRN for ITCHING/SWELLING Allergies Coded Allergies: SEAFOOD (Verified Allergy, Intermediate, 05/11/20) hives Penicillins (Verified Allergy, Mild, HIVES, 08/07/18) Bibi Mckeon MD Feb 21, 2021 10:56
--- NOTE | 2021-02-22 07:00 | ECGEPIP ---
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
--- NOTE | 2021-02-25 20:00 | ED PDOC ---
Post-Departure Follow-Up certified letter sent to patient regarding radiology report Chikis Murrell MD Feb 25, 2021 20:00
== END 2021-02-21 09:10 | disposition left against medical advice (07) | DRG 720 ==
LOC: M ED 01:48 → M ED INP 06:09 → ENRESERV 06:38 → M ED INP 02-24 14:40 → M ICU 02-24 14:40 → M ED INP 02-24 14:58 → M ICU 02-24 14:58
PROVIDERS: ADMIT Family Medicine; ATTEND Internal Medicine Nephrology
DX: A41.9 Sepsis, unspecified organism (principal); U07.1 COVID-19; R65.21 Severe sepsis with septic shock; G93.41 Metabolic encephalopathy; T40.2X4A Poisoning by other opioids, undetermined, initial encounter; F17.200 Nicotine dependence, unspecified, uncomplicated; K52.9 Noninfective gastroenteritis and colitis, unspecified; R91.8 Other nonspecific abnormal finding of lung field; R74.01 Elevation of levels of liver transaminase levels; Z79.1 Long term (current) use of non-steroidal anti-inflammatories (NSAID); Z79.52 Long term (current) use of systemic steroids; Z88.0 Allergy status to penicillin; Z91.030 Bee allergy status; Z53.20 Procedure and treatment not carried out because of patient's decision for unspecified reasons

== ENCOUNTER → 2022-09-17 | Outpatient (CLI) | payer OTHER ==
[2022-09-17 17:46] LABS: HEMATOCRIT 40.4 % (42.0-52.0); HEMOGLOBIN 13.4 g/dl (13.5-17.5); MEAN CORPUSCULAR HEMOGLOBIN 30.8 pg (27.0-33.0); MEAN CORPUSCULAR HGB CONC 33.2 g/dl (32.0-36.5); MEAN CORPUSCULAR VOLUME 92.9 fl (80.0-96.0); PLATELET COUNT, AUTOMATED 277 10^3/uL (150-450); RED BLOOD COUNT 4.35 10^6/uL (4.30-6.10); WHITE BLOOD COUNT 9.4 10^3/uL (4.0-10.0)
[2022-09-17 18:07] LABS: ALBUMIN 4.2 G/DL (3.2-5.2); ALKALINE PHOSPHATASE 81 U/L (46-116); ALT/SGPT 21 U/L (7.0-40); AST/SGOT 15 U/L (<34); BILIRUBIN,TOTAL 0.3 MG/DL (0.3-1.2); BLOOD UREA NITROGEN 14 MG/DL (9-23); CALCIUM LEVEL 9.2 MG/DL (8.5-10.1); CARBON DIOXIDE LEVEL 28 MMOL/L (20-31); CHLORIDE LEVEL 106 MMOL/L (98-107); GLOMERULAR FILTRATION RATE > 60.0 (>60); GLUCOSE, FASTING 107 MG/DL (60-100); POTASSIUM SERUM 4.2 MMOL/L (3.5-5.1); SODIUM LEVEL 141 MMOL/L (136-145); TOTAL PROTEIN 7.2 G/DL (5.7-8.2)
[2022-09-17 18:27] LABS: GC DNA AMPLIFICATION NEGATIVE (NEGATIVE)
[2022-09-17 18:53] LABS: HIV 1&2 SCREEN NEGATIVE (NEGATIVE)
[2022-09-17 19:00] LABS: HEPATITIS C VIRUS ABY INDEX 0.1 INDEX (<0.8)
[2022-09-19 23:10] LABS: HBV HBV DNA not detected IU/mL (.)
== END ==
LOC: M WUC 13:39
PROVIDERS: ATTEND Family Medicine
DX: F11.20 Opioid dependence, uncomplicated (principal)

== ENCOUNTER → 2023-03-13 | Outpatient (REF) | payer OTHER | LOC: M LAB REF 18:30 | PROVIDERS: ATTEND Physician Assistant Medical | DX: R52 Pain, unspecified (principal) ==